=== PATIENT | male | born 1970 | race Caucasian/White ===

== ENCOUNTER 2017-05-09 11:35 | Emergency (ER) | payer BC ==
[2017-05-09 11:48] VITALS: RESP 18
[2017-05-09] MEDS ORDERED: SODIUM CHLORIDE 0.9% 500 ML IV STA (12:00)
[2017-05-09] MEDS ORDERED: RX INFO: IV CONTRAST WAS GIVEN 1 EACH MISC MISCELLANE PRN (12:00)
[2017-05-09] MEDS ORDERED: SODIUM CHLORIDE 0.9% 1,000 ML IV STA (12:00)
[2017-05-09] MEDS ORDERED: MORPHINE SULFATE 4 MG/ML SYRINGE IV STA (12:00)
[2017-05-09] MEDS ORDERED: ONDANSETRON 4 MG/2 ML VIAL IVP STA (12:00)
--- NOTE | 2017-05-09 12:16 | ED ---
General Adult HPI - General Chief complaint: Headache Stated complaint: left arm pain, headache (cardiac pt) Time Seen by Provider: 05/09/17 11:56 Source: patient, RN notes reviewed, old records reviewed Mode of arrival: wheelchair Limitations: no limitations - History of Present Illness Initial comments: This is a 46-year-old male to the ER today for evaluation regarding headache. 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 No prior history of headache. Patient denies any medical history. He states his work last night does admit to stress from work. Complaining of anterior headache for the last 4 hours after he woke this morning. Patient also stated he had some chest pain and some left arm tingling at the time. Chest pain tingling has resolved. Patient still with anterior headache. Denies fever or recent trauma. Patient takes no medications, denies drugs or alcohol. Patient states this is not the worse headache that he has ever had but it is concerning if it is not improved with Motrin and Tylenol. Patient states headache is anterior behind his forehead and throbbing in nature. No nausea vomiting. No recent fevers, patient denies neck pain. Denies any recent trauma. No change in vision no hearing issues. Patient denies numbness entailing at this time, no neurological complaint - Related Data Home Medications Medication Instructions Recorded Confirmed Multivitamins, Thera [Theragran] 1 tab PO DAILY 05/19/15 05/09/17 Omeprazole [PriLOSEC] 20 mg PO DAILY 05/19/15 05/09/17 amLODIPine BESYLATE/BENAZEPRIL 1 cap PO DAILY 05/19/15 05/09/17 [Amlodipine-Benazepril 5-10 mg] Allergies Allergy/AdvReac Type Severity Reaction Status Date / Time No Known Allergies Allergy Verified 05/09/17 12:15 Review of Systems ROS Statement: Those systems with pertinent positive or pertinent negative responses have been documented in the HPI. ROS Other: All systems not noted in ROS Statement are negative. Past Medical History Past Medical History: GERD/Reflux, Hypertension Additional Past Medical History / Comment(s): HX OF PERICARDITIS (17 YRS OLD)., BLOOD IN STOOL., SLIGHT HEARING LOSS. History of Any Multi-Drug Resistant Organisms: None Reported Past Surgical History: Tonsillectomy Additional Past Surgical History / Comment(s): ARTHROSCOPY RT KNEE, UPPER SCOPE TO REMOVE IBUPROFEN STUCK IN ESOPHAGEAL STRICTURE. Past Anesthesia/Blood Transfusion Reactions: No Reported Reaction Past Psychological History: No Psychological Hx Reported Smoking Status: Never smoker Past Alcohol Use History: Occasional Past Drug Use History: None Reported - Past Family History Mother Family Medical History: No Reported History General Exam Limitations: no limitations General appearance: alert, in no apparent distress Head exam: Present: atraumatic, normocephalic, normal inspection Eye exam: Present: normal appearance, PERRL, EOMI. Absent: scleral icterus, conjunctival injection, periorbital swelling ENT exam: Present: normal exam, mucous membranes moist Neck exam: Present: normal inspection. Absent: tenderness, meningismus, lymphadenopathy Respiratory exam: Present: normal lung sounds bilaterally. Absent: respiratory distress, wheezes, rales, rhonchi, stridor Cardiovascular Exam: Present: regular rate, normal rhythm, normal heart sounds. Absent: systolic murmur, diastolic murmur, rubs, gallop, clicks GI/Abdominal exam: Present: soft, normal bowel sounds. Absent: distended, tenderness, guarding, rebound, rigid Extremities exam: Present: normal inspection, full ROM, normal capillary refill. Absent: tenderness, pedal edema, joint swelling, calf tenderness Back exam: Present: normal inspection Neurological exam: Present: alert, oriented X3, CN II-XII intact Psychiatric exam: Present: normal affect, normal mood Skin exam: Present: warm, dry, intact, normal color. Absent: rash Course Vital Signs 05/09/17 05/09/17 05/09/17 11:44 13:06 14:36 Temperature 98.1 F Pulse Rate 78 78 80 Respiratory 18 18 18 Rate Blood Pressure 139/95 148/96 137/89 O2 Sat by Pulse 96 97 96 Oximetry - Reevaluation(s) Reevaluation #1: 05/09/17 15:52 At this point patient has significant improvement in headache EKG Findings - EKG Comments: EKG Findings:: EKG shows normal sinus rhythm rate of 72, LA 162, QRS 96, QTC 370 Medical Decision Making - Medical Decision Making 46 male the ER for evaluation. Patient is a new event ER for evaluation of headache. Stress headache, states job is under increased stress. No nausea vomiting no neurological complaints, no visual or hearing issues. Patient's headache at this time is resolved - Lab Data Result diagrams: 05/09/17 12:54 05/09/17 12:54 Lab Results 05/09/17 05/09/17 05/09/17 Range/Units 12:54 12:54 12:54 WBC 10.3 (3.8-10.6) k/uL RBC 5.06 (4.30-5.90) m/uL Hgb 15.6 (13.0-17.5) gm/dL Hct 42.5 (39.0-53.0) % MCV 83.9 (80.0-100.0) fL MCH 30.8 (25.0-35.0) pg MCHC 36.6 (31.0-37.0) g/dL RDW 13.0 (11.5-15.5) % Plt Count 259 (150-450) k/uL Neutrophils % 89 % Lymphocytes % 7 % Monocytes % 2 % Eosinophils % 0 % Basophils % 0 % Neutrophils # 9.2 H (1.3-7.7) k/uL Lymphocytes # 0.8 L (1.0-4.8) k/uL Monocytes # 0.2 (0-1.0) k/uL Eosinophils # 0.0 (0-0.7) k/uL Basophils # 0.0 (0-0.2) k/uL PT (9.0-12.0) sec INR (<1.1) APTT (22.0-30.0) sec Sodium 140 (137-145) mmol/L Potassium 4.4 (3.5-5.1) mmol/L Chloride 105 (98-107) mmol/L Carbon Dioxide 25 (22-30) mmol/L Anion Gap 10 mmol/L BUN 14 (9-20) mg/dL Creatinine 0.82 (0.66-1.25) mg/dL Est GFR (MDRD) Af Amer >60 (>60 ml/min/1.73 sqM) Est GFR (MDRD) Non-Af >60 (>60 ml/min/1.73 sqM) Glucose 114 H (74-99) mg/dL Calcium 9.3 (8.4-10.2) mg/dL Phosphorus 3.5 (2.5-4.5) mg/dL Magnesium 2.0 (1.6-2.3) mg/dL Total Bilirubin 0.7 (0.2-1.3) mg/dL AST 22 (17-59) U/L ALT 23 (21-72) U/L Alkaline Phosphatase 51 (38-126) U/L Total Creatine Kinase 131 (55-170) U/L CK-MB (CK-2) 1.8 (0.0-2.4) ng/mL CK-MB (CK-2) Rel Index 1.4 Troponin I <0.012 (0.000-0.034) ng/mL Total Protein 7.5 (6.3-8.2) g/dL Albumin 4.4 (3.5-5.0) g/dL 05/09/17 Range/Units 12:54 WBC (3.8-10.6) k/uL RBC (4.30-5.90) m/uL Hgb (13.0-17.5) gm/dL Hct (39.0-53.0) % MCV (80.0-100.0) fL MCH (25.0-35.0) pg MCHC (31.0-37.0) g/dL RDW (11.5-15.5) % Plt Count (150-450) k/uL Neutrophils % % Lymphocytes % % Monocytes % % Eosinophils % % Basophils % % Neutrophils # (1.3-7.7) k/uL Lymphocytes # (1.0-4.8) k/uL Monocytes # (0-1.0) k/uL Eosinophils # (0-0.7) k/uL Basophils # (0-0.2) k/uL PT 11.2 (9.0-12.0) sec INR 1.1 (<1.1) APTT 27.8 (22.0-30.0) sec Sodium (137-145) mmol/L Potassium (3.5-5.1) mmol/L Chloride (98-107) mmol/L Carbon Dioxide (22-30) mmol/L Anion Gap mmol/L BUN (9-20) mg/dL Creatinine (0.66-1.25) mg/dL Est GFR (MDRD) Af Amer (>60 ml/min/1.73 sqM) Est GFR (MDRD) Non-Af (>60 ml/min/1.73 sqM) Glucose (74-99) mg/dL Calcium (8.4-10.2) mg/dL Phosphorus (2.5-4.5) mg/dL Magnesium (1.6-2.3) mg/dL Total Bilirubin (0.2-1.3) mg/dL AST (17-59) U/L ALT (21-72) U/L Alkaline Phosphatase (38-126) U/L Total Creatine Kinase (55-170) U/L CK-MB (CK-2) (0.0-2.4) ng/mL CK-MB (CK-2) Rel Index Troponin I (0.000-0.034) ng/mL Total Protein (6.3-8.2) g/dL Albumin (3.5-5.0) g/dL - Radiology Data Radiology results: report reviewed (CT brain, CT angiogram neck negative for acute disease, no aneurysm,), image reviewed Disposition Clinical Impression: Headache, Anxiety, Stress reaction, Tension headache Disposition: HOME SELF-CARE Condition: Good Instructions: Acute Headache (ED) Referrals: Ravinder Bryant MD [Primary Care Provider] - 1-2 days
[2017-05-09 13:23] LABS: Basophils % (A) 0 %; CH 29.6; CHCM 35.4; Eosinophils % (A) 0 %; HCT 42.5 % (39.0-53.0); HDW 3.11; HGB 15.6 gm/dL (13.0-17.5); Luc # (Auto) 0.08; Luc % (Auto) 1; Lymphocytes # (A) 0.8 k/uL (1.0-4.8); Lymphocytes % (A) 7 %; MCH 30.8 pg (25.0-35.0); MCHC 36.6 g/dL (31.0-37.0); MCV 83.9 fL (80.0-100.0); Mean Platelet Volume 6.6; Monocytes # (A) 0.2 k/uL (0-1.0); Monocytes % (A) 2 %; Neutrophils # (A) 9.2 k/uL (1.3-7.7); Neutrophils % (A) 89 %; RBC 5.06 m/uL (4.30-5.90); WBC 10.3 k/uL (3.8-10.6); WBC (Perox) 10.48
[2017-05-09 13:31] LABS: ALT 23 U/L (21-72); AST 22 U/L (17-59); Alkaline Phosphatase 51 U/L (38-126); Anion Gap 10 mmol/L; Blood Urea Nitrogen 14 mg/dL (9-20); Calcium 9.3 mg/dL (8.4-10.2); Carbon Dioxide 25 mmol/L (22-30); Chloride 105 mmol/L (98-107); Glucose 114 mg/dL (74-99); Non-African American GFR(MDRD) >60 (>60 ml/min/1.73 sqM); Phosphorous 3.5 mg/dL (2.5-4.5); Potassium 4.4 mmol/L (3.5-5.1); Sodium 140 mmol/L (137-145); Total Bilirubin 0.7 mg/dL (0.2-1.3); Total Protein 7.5 g/dL (6.3-8.2)
[2017-05-09 13:34] LABS: INR 1.1 (<1.1); Partial Thromboplastin Time 27.8 sec (22.0-30.0); Prothrombin Time 11.2 sec (9.0-12.0)
[2017-05-09 13:42] LABS: Creatine Kinase 131 U/L (55-170)
[2017-05-09 13:55] LABS: Creatine Kinase MB 1.8 ng/mL (0.0-2.4); Troponin I <0.012 ng/mL (0.000-0.034)
--- NOTE | 2017-05-09 14:33 | XR ---
EXAMINATION TYPE: XR chest 2V DATE OF EXAM: 05/09/2017 COMPARISON: None HISTORY: 46-year-old male left arm pain and weakness TECHNIQUE: PA and lateral views FINDINGS: The cardiomediastinal silhouette, aorta, and pulmonary vasculature are within normal limits. No conso lidation or pleural effusion. IMPRESSION: No acute cardiopulmonary process.
[2017-05-09] MEDS ORDERED: diphenhydrAMINE 50 MG/ML 1 ML VIAL IVP STA (14:49)
[2017-05-09] MEDS ORDERED: DIAZEPAM 5 MG/ML 2 ML SYRINGE IVP STA (14:49)
--- NOTE | 2017-05-09 15:14 | CT ---
EXAMINATION TYPE: CT angio head neck DATE OF EXAM: 05/09/2017 HISTORY: Chest pain and headache COMPARISON: NONE CT DLP: 538.10 mGycm. Automated Exposure Control for Dose Reduction was Utilized. TECHNIQUE: CTA scan of the neck is performed with IV Contrast, patient injected with 100 ml mL of Om nipaque 350, axial images are obtained, coronal and sagittal reformatted images are reviewed. Three-D reconstructed images are created on an independent workstation and reviewed. FINDINGS: Carotid/Vascular Structures: Patent, there is no evident filling defect or dissection. Left vertebral artery is dominant. [place] shows no aneurysm or significant stenosis, no vascular malforma tion. Other: Degenerative disc disease present within the visualized cervical spine. Multilevel foraminal e ncroachment. IMPRESSION: No significant abnormality is seen.
--- NOTE | 2017-05-09 15:19 | CT ---
EXAMINATION TYPE: CT brain wo con DATE OF EXAM: 05/09/2017 COMPARISON: NONE HISTORY: Chest pain and headache CT DLP: 1047.10 mGycm. Automated Exposure Control for Dose Reduction was Utilized. TECHNIQUE: CT scan of the head is performed without contrast. FINDINGS: There is no acute intracranial hemorrhage, mass effect, or midline shift identified. The ventricles and sulci are within normal limits in size. The globes are intact and the visualized sin uses are remarkable for mucosal disease in the ethmoid air cells and frontal sinus. IMPRESSION: No acute intracranial hemorrhage, mass effect, or midline shift is seen.
[2017-05-09] MEDS ORDERED: KETOROLAC 30 MG/ML 1 ML VIAL IVP STA (15:52)
[2017-05-09 16:24] VITALS: BP 140/92; PULSE 74; TEMP 97.8
== END 2017-05-09 16:23 | disposition home or self-care (01) ==
LOC: EC 11:35
DX: G44.209 Tension-type headache, unspecified, not intractable (principal); F43.9 Reaction to severe stress, unspecified; F41.9 Anxiety disorder, unspecified; M79.602 Pain in left arm; K21.9 Gastro-esophageal reflux disease without esophagitis; I10 Essential (primary) hypertension; Z79.899 Other long term (current) drug therapy
CPT/HCPCS: 36415; 93005; 80053; 82550; 82553; 83735; 84100; 84484; 85025; 85610; 85730; 71020; 70496; 70450; 70498; 99285; 96374; 96375 ×2; 96361 ×3; J2270; Q9967; J2405; J1885

== ENCOUNTER 2018-12-06 09:30 | Day surgery (SDC) | payer BC ==
[2018-12-04 13:26] VITALS: BMI 31.0
[~2018-12-06 09:30] MED LIST: LACTATED RINGERS 1,000 ML IV SCH; LIDOCAINE 1% 20 ML VIAL (10MG/ML) FOR IV START INTRADERMA PRN
[2018-12-06 10:22] VITALS: RESP 16; TEMP 97.6
[2018-12-06] MEDS ORDERED: LIDOCAINE 1% INJ 10MG/ML (20 ML MDV) ONE (11:08)
[2018-12-06] MEDS ORDERED: PROPOFOL 10 MG/ML 20 ML VIAL IV ONE (11:08)
--- NOTE | 2018-12-06 12:05 | P.PCN ---
Date of Procedure: 12/06/18 Procedure(s) Performed: Procedures: 1. Esophagogastroduodenoscopy and biopsy. 2. Colonoscopy and polypectomy. Preoperative diagnosis: Reflux symptoms, change in bowel habits and intermittent rectal bleeding. Postoperative diagnosis: 1. Hiatal hernia and Hilario's esophagus. 2. Mild gastritis. 3. Sigmoid polyp snared but no large polyps or cancer. 4. Sigmoid diverticulosis with no evidence of acute diverticulitis or strictures. 5. Low- grade internal hemorrhoids without bleeding at the time of this exam. Preparation: HalfLytely prep. Sedation: Was provided by anesthesia. Brief clinical history: The patient 48-year-old male who is scheduled for this evaluation because of issues with constipation and intermittent rectal bleeding as well as chronic reflux issues requiring PPI therapy. He has history of esophageal stricture that required dilation several years back. He had a prior colonoscopy in 2014 that revealed internal hemorrhoids and diverticulosis. Procedure: With the patient on his left lateral decubitus position and after informed consent and adequate sedation, I passed a Olympus-GIF H190 video upper endoscope through the cricopharyngeus down the esophagus. The kofi-GE junction started around 36 cm from the incisors and the tubular esophagus continued for another 4-5 cm defining a segment of Hilario's esophagus. The esophagus, otherwise, did not show any erosions or strictures. No ulcers or bleeding. The endoscope was then passed into the stomach. There was a 1-2 cm sliding hiatal hernia. The stomach showed mottling and erythema consistent with mild antral gastritis. Pyloric channel, duodenal bulb, post bulbar area and descending duodenum appeared within normal limits. I obtained multiple biopsies from the duodenum, antrum and esophagus including the segment of Hilario's esophagus then the endoscope was withdrawn and I proceeded with the colonoscopy. Perianal area did not show any fissures or fistulas. There were no masses felt on digital rectal examination. The Olympus CFH 190L video colonoscope was then inserted in the rectum in the usual fashion and advanced to the cecum. Several diverticular orifices were seen scattered in the sigmoid with no evidence of acute diverticulitis or strictures. In the distal sigmoid there was a small polyp which I snared and retrieved by suctioning it to the tip of the endoscope , withdrawing the endoscope and then restarting the exam. The mucosa appeared healthy. No other polyps or tumors were seen. I retroflexed the endoscope in the rectum before the endoscope was withdrawn. Low-grade internal hemorrhoids were noted with no evidence of bleeding. The patient tolerated the procedure well. Plan: The patient was reassured. Discussed dietary measures and local care for hemorrhoids and antireflux diet. He will continue PPI and I anticipate repeating his upper endoscopy in 2-3 years and his colonoscopy in around 5 years. He will follow up with you as planned.
[2018-12-06 12:10] VITALS: BP 130/90; PULSE 63
--- NOTE | 2018-12-10 11:41 | CDI ---
Outpatient Documentation Clarification Form Date: 12/10/18 CDS/Nurse Sane Name: Rukhsana Acosta Phone: If any questions, call Nichole Aguilar Legal Coordinator at [phone] Patient Name: Saul Ross Admit Date: 12/06/18 Discharge Date: 12/06/18 ATTENTION: The [facility] Coding Staff appreciate your assistance in clarifying documentation. Please respond to the clarification below the line at the bottom and electronically sign. The [facility] Coding staff will review the response and follow-up if needed. Please note: Queries are made part of the Legal Health Record. If you have any questions, please contact the Legal Coordinator. Dear Dr. Busby, What is the cause of the rectal bleeding? Our coding resources state that when rectal bleeding is documented along with internal and/or external hemorrhoids, the physician must be queried to determine whether the rectal bleeding is secondary to the hemorrhoids, or incidental. Additionally, other possible causes could be the sigmoid tubular adenoma or the diverticulosis. Thank you for your kind consideration. When I do colonoscopy and no active bleeding, I cannot determine source. If I know source, I say it. I gave all the information that I can. Do not ask this question again on future cases. GREGORIO
== END 2018-12-06 13:15 | disposition home or self-care (01) ==
LOC: ORWHC2ENDO 09:30
DX: K22.70 Barrett's esophagus without dysplasia (principal); K21.0 Gastro-esophageal reflux disease with esophagitis; K29.50 Unspecified chronic gastritis without bleeding; K44.9 Diaphragmatic hernia without obstruction or gangrene; D12.5 Benign neoplasm of sigmoid colon; K57.30 Diverticulosis of large intestine without perforation or abscess without bleeding; K64.8 Other hemorrhoids; I10 Essential (primary) hypertension; Z87.19 Personal history of other diseases of the digestive system; Z79.899 Other long term (current) drug therapy
CPT/HCPCS: 88305; 45385; 43239; J2001; J2704

== ENCOUNTER 2019-04-18 22:21 | Emergency (ER) | payer BC ==
[2019-04-18] MEDS ORDERED: ACETAMINOPHEN TAB 500 MG TAB PO STA (22:46)
[2019-04-18] MEDS ORDERED: SODIUM CHLORIDE 0.9% 1,000 ML IV STA (22:46)
[2019-04-18] MEDS ORDERED: ONDANSETRON 4 MG/2 ML VIAL IVP STA (22:47)
--- NOTE | 2019-04-18 22:50 | ED ---
General Adult HPI - General Chief complaint: Upper Respiratory Infection Stated complaint: Fever Time Seen by Provider: 04/18/19 22:36 Source: patient, family, RN notes reviewed Mode of arrival: ambulatory Limitations: no limitations - History of Present Illness Initial comments: Patient is a pleasant 48-year-old male presenting to the emergency Department with complaints of not feeling well. Onset of symptoms was 2 days ago. Patient did have nausea and vomiting and hasn't vomited approximately 4-5 times. Nausea seems improved. Patient did have a headache yesterday however that has resolved at this time. Patient now has sore throat. Patient complains of fatigue and myalgias and chills. Patient has been taking Tylenol or Motrin. Last Tylenol was 6 PM. Last Advil was around 9 PM. They're may be minimal cough. No dyspnea. No abdominal pain. No isolated area of weakness or confusion. No neck stiffness. - Related Data Home Medications Medication Instructions Recorded Confirmed Omeprazole [PriLOSEC] 20 mg PO DAILY 05/19/15 04/18/19 amLODIPine BESYLATE/BENAZEPRIL 1 cap PO DAILY 05/19/15 04/18/19 [Amlodipine-Benazepril 5-10 mg] Previous Rx's Medication Instructions Recorded Ondansetron Odt [Zofran Odt] 4 mg PO Q8HR PRN #10 tab 04/19/19 Allergies Allergy/AdvReac Type Severity Reaction Status Date / Time No Known Allergies Allergy Verified 04/18/19 22:55 Review of Systems ROS Statement: Those systems with pertinent positive or pertinent negative responses have been documented in the HPI. ROS Other: All systems not noted in ROS Statement are negative. Constitutional: Reports: as per HPI, fever, chills Eyes: Denies: eye pain ENT: Denies: ear pain Respiratory: Reports: as per HPI Cardiovascular: Denies: chest pain Endocrine: Reports: fatigue Gastrointestinal: Reports: nausea, vomiting. Denies: abdominal pain, diarrhea, constipation Genitourinary: Denies: dysuria Musculoskeletal: Denies: back pain Skin: Denies: rash Neurological: Reports: as per HPI Past Medical History Past Medical History: GERD/Reflux, Hypertension Additional Past Medical History / Comment(s): HX OF PERICARDITIS (17 YRS OLD)., BLOOD IN STOOL., SLIGHT HEARING LOSS. 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 Past Anesthesia/Blood Transfusion Reactions: No Reported Reaction Past Psychological History: No Psychological Hx Reported Smoking Status: Never smoker Past Alcohol Use History: Occasional Past Drug Use History: None Reported - Past Family History Sister(s) Family Medical History: Cancer Additional Family Medical History / Comment(s): pancreatic General Exam Limitations: no limitations General appearance: alert, in no apparent distress Head exam: Present: atraumatic, normocephalic Eye exam: Present: normal appearance, PERRL, EOMI ENT exam: Present: normal oropharynx Neck exam: Present: lymphadenopathy (Anterior cervical lymphadenopathy with tenderness). Absent: meningismus Respiratory exam: Present: normal lung sounds bilaterally Cardiovascular Exam: Present: tachycardia Expanded Peripheral pulses: 2+: Radial (R), Radial (L), Dorsalis Pedis (R), Dorsalis Pedis (L) GI/Abdominal exam: Present: soft. Absent: distended, tenderness Extremities exam: Present: normal inspection. Absent: pedal edema, calf tenderness Neurological exam: Present: alert. Absent: motor sensory deficit Psychiatric exam: Present: normal affect, normal mood Skin exam: Present: normal color Course Vital Signs 04/18/19 04/18/19 22:29 22:46 Temperature 100.3 F H Pulse Rate 107 H Respiratory 20 Rate Blood Pressure 122/73 O2 Sat by Pulse 95 95 Oximetry Medical Decision Making - Medical Decision Making Patient reevaluated and feels better. Repeat abdominal exam remained soft and nontender. Patient and family updated on results and need for follow-up. Patient advised for repeat testing regarding bilirubin - Lab Data Result diagrams: 04/18/19 23:02 04/18/19 23:02 Lab Results 04/18/19 04/18/19 04/18/19 Range/Units 23:02 23:02 23:02 WBC 13.5 H (3.8-10.6) k/uL RBC 5.00 (4.30-5.90) m/uL Hgb 14.7 (13.0-17.5) gm/dL Hct 41.9 (39.0-53.0) % MCV 83.9 (80.0-100.0) fL MCH 29.4 (25.0-35.0) pg MCHC 35.0 (31.0-37.0) g/dL RDW 14.1 (11.5-15.5) % Plt Count 229 (150-450) k/uL Neutrophils % 92 % Lymphocytes % 4 % Monocytes % 3 % Eosinophils % 1 % Basophils % 0 % Neutrophils # 12.4 H (1.3-7.7) k/uL Lymphocytes # 0.5 L (1.0-4.8) k/uL Monocytes # 0.4 (0-1.0) k/uL Eosinophils # 0.1 (0-0.7) k/uL Basophils # 0.0 (0-0.2) k/uL Sodium 134 L (137-145) mmol/L Potassium 3.4 L (3.5-5.1) mmol/L Chloride 101 (98-107) mmol/L Carbon Dioxide 23 (22-30) mmol/L Anion Gap 10 mmol/L BUN 12 (9-20) mg/dL Creatinine 0.93 (0.66-1.25) mg/dL Est GFR (CKD-EPI)AfAm >90 (>60 ml/min/1.73 sqM) Est GFR (CKD-EPI)NonAf >90 (>60 ml/min/1.73 sqM) Glucose 126 H (74-99) mg/dL Calcium 8.6 (8.4-10.2) mg/dL Total Bilirubin 2.3 H (0.2-1.3) mg/dL AST 42 (17-59) U/L ALT 37 (21-72) U/L Alkaline Phosphatase 76 (38-126) U/L Total Protein 6.9 (6.3-8.2) g/dL Albumin 3.7 (3.5-5.0) g/dL Urine Color Urine Appearance (Clear) Urine pH (5.0-8.0) Ur Specific [place] (1.001-1.035) Urine Protein (Negative) Urine Glucose (UA) (Negative) Urine Ketones (Negative) Urine Blood (Negative) Urine Nitrite (Negative) Urine Bilirubin (Negative) Urine Urobilinogen (<2.0) mg/dL Ur Leukocyte Esterase (Negative) Influenza Type A RNA Not Detected (Not Detectd) Influenza Type B (PCR) Not Detected (Not Detectd) Group A Strep Rapid (Negative) 04/18/19 04/19/19 Range/Units 23:02 00:10 WBC (3.8-10.6) k/uL RBC (4.30-5.90) m/uL Hgb (13.0-17.5) gm/dL Hct (39.0-53.0) % MCV (80.0-100.0) fL MCH (25.0-35.0) pg MCHC (31.0-37.0) g/dL RDW (11.5-15.5) % Plt Count (150-450) k/uL Neutrophils % % Lymphocytes % % Monocytes % % Eosinophils % % Basophils % % Neutrophils # (1.3-7.7) k/uL Lymphocytes # (1.0-4.8) k/uL Monocytes # (0-1.0) k/uL Eosinophils # (0-0.7) k/uL Basophils # (0-0.2) k/uL Sodium (137-145) mmol/L Potassium (3.5-5.1) mmol/L Chloride (98-107) mmol/L Carbon Dioxide (22-30) mmol/L Anion Gap mmol/L BUN (9-20) mg/dL Creatinine (0.66-1.25) mg/dL Est GFR (CKD-EPI)AfAm (>60 ml/min/1.73 sqM) Est GFR (CKD-EPI)NonAf (>60 ml/min/1.73 sqM) Glucose (74-99) mg/dL Calcium (8.4-10.2) mg/dL Total Bilirubin (0.2-1.3) mg/dL AST (17-59) U/L ALT (21-72) U/L Alkaline Phosphatase (38-126) U/L Total Protein (6.3-8.2) g/dL Albumin (3.5-5.0) g/dL Urine Color Yellow Urine Appearance Clear (Clear) Urine pH 6.0 (5.0-8.0) Ur Specific [place] 1.009 (1.001-1.035) Urine Protein Trace H (Negative) Urine Glucose (UA) Negative (Negative) Urine Ketones Negative (Negative) Urine Blood Negative (Negative) Urine Nitrite Negative (Negative) Urine Bilirubin Negative (Negative) Urine Urobilinogen <2.0 (<2.0) mg/dL Ur Leukocyte Esterase Negative (Negative) Influenza Type A RNA (Not Detectd) Influenza Type B (PCR) (Not Detectd) Group A Strep Rapid Negative (Negative) - Radiology Data Radiology results: image reviewed (Chest x-ray reveals no acute findings) Disposition Clinical Impression: Viral infection Disposition: HOME SELF-CARE Condition: Stable Instructions (If sedation given, give patient instructions): Viral Syndrome (ED) Additional Instructions: Please do follow-up with primary care physician in the next day or 2 for recheck. Return for difficulty breathing, uncontrolled fever, uncontrolled vomiting, increased pain, worsening symptoms or any other concerns. [id number] vitamin C. Salt water gargle. Continue Tylenol and Advil. Prescriptions: Ondansetron Odt [Zofran Odt] 4 mg PO Q8HR PRN #10 tab PRN Reason: Nausea Is patient prescribed a controlled substance at d/c from ED?: No Referrals: Ravinder Bryant MD [Primary Care Provider] - 1-2 days Time of Disposition: 00:35
[2019-04-18 23:26] LABS: Basophils % (A) 0 %; Eosinophils # (A) 0.1 k/uL (0-0.7); Eosinophils % (A) 1 %; HCT 41.9 % (39.0-53.0); HGB 14.7 gm/dL (13.0-17.5); Lymphocytes # (A) 0.5 k/uL (1.0-4.8); Lymphocytes % (A) 4 %; MCH 29.4 pg (25.0-35.0); MCV 83.9 fL (80.0-100.0); Mean Platelet Volume 6.9; Monocytes # (A) 0.4 k/uL (0-1.0); Monocytes % (A) 3 %; Neutrophils # (A) 12.4 k/uL (1.3-7.7); Neutrophils % (A) 92 %; Platelet Count 229 k/uL (150-450); RDW 14.1 % (11.5-15.5); WBC 13.5 k/uL (3.8-10.6)
--- NOTE | 2019-04-18 23:28 | XR ---
EXAM: XR Chest, 2 Views CLINICAL HISTORY: ITS.REASON XR Reason: cough TECHNIQUE: Frontal and lateral views of the chest. COMPARISON: No relevant prior studies available. FINDINGS: Lungs: Unremarkable. No consolidation. Pleural space: Unremarkable. No pneumothorax. Heart: No suspicious enlargement. Mediastinum: Unremarkable. Bones/joints: No acute fracture. IMPRESSION: No acute findings.
[2019-04-18 23:35] LABS: ALT 37 U/L (21-72); AST 42 U/L (17-59); African American GFR (CKD) >90 (>60 ml/min/1.73 sqM); Albumin 3.7 g/dL (3.5-5.0); Alkaline Phosphatase 76 U/L (38-126); Anion Gap 10 mmol/L; Blood Urea Nitrogen 12 mg/dL (9-20); Calcium 8.6 mg/dL (8.4-10.2); Carbon Dioxide 23 mmol/L (22-30); Chloride 101 mmol/L (98-107); Glucose 126 mg/dL (74-99); Potassium 3.4 mmol/L (3.5-5.1); Sodium 134 mmol/L (137-145); Total Bilirubin 2.3 mg/dL (0.2-1.3); Total Protein 6.9 g/dL (6.3-8.2)
[2019-04-19 00:26] LABS: Appearance,Urine Clear (Clear); Bilirubin,Urine Negative (Negative); Blood,Urine Negative (Negative); Color,Urine Yellow; Glucose,Urine (UA) Negative (Negative); Ketones,Urine Negative (Negative); Leukocyte Esterase,Urine Negative (Negative); Nitrite,Urine Negative (Negative); Protein,Urine Trace (Negative); Specific Gravity,Urine 1.009 (1.001-1.035); Urobilinogen,Urine <2.0 mg/dL (<2.0)
[2019-04-19 00:54] VITALS: BP 128/68; PULSE 89; RESP 18; TEMP 99
== END 2019-04-19 00:54 | disposition home or self-care (01) ==
LOC: EC 22:21
DX: B34.9 Viral infection, unspecified (principal); K21.9 Gastro-esophageal reflux disease without esophagitis; I10 Essential (primary) hypertension; Z79.899 Other long term (current) drug therapy
CPT/HCPCS: 36415; 80053; 85025; 81003; 87081; 87430; 87502; 71046; 99283; 96374; 96361; J2405

== ENCOUNTER 2019-04-19 10:21 | Inpatient (IN) | payer BC ==
[2019-04-19] MEDS ORDERED: ACETAMINOPHEN TAB 325 MG TAB PO STA (10:53)
[2019-04-19] MEDS ORDERED: SODIUM CHLORIDE 0.9% 1,000 ML IV ONE ×3 (10:53→17:09)
--- NOTE | 2019-04-19 11:02 | ED ---
ENT HPI - General Chief complaint: ENT Stated complaint: Weakness, Difficulty Swallowing Time Seen by Provider: 04/19/19 10:34 Source: patient Mode of arrival: ambulatory Limitations: no limitations - History of Present Illness Initial comments: 48-year-old male presenting today for chief complaint of fever, body aches, sore throat. x 2-3 days. Patient states that since Monday he has felt unwell initially thought he had a and something bad and had vomiting 3-4 times Monday evening. Patient states that subsided. Patient states he has had on and off epigastric pain. Patient states he has body aches all over he has had a sore throat that developed on Monday. He states he has had fever on and off managed with Tylenol and ibuprofen. Last dose of Advil 1 hour prior to arrival. Patient denies any chest pains shorts breath cough or leg swelling. Patient states he has had a history of pericarditis, stating that the body aches and fever feels similar. She denies any diarrhea, neck stiffness, ANGELA or photophobia. Remaining review of systems negative. Upon arrival patient appears fatigued. - Related Data Home Medications Medication Instructions Recorded Confirmed Omeprazole [PriLOSEC] 20 mg PO DAILY 05/19/15 04/19/19 amLODIPine BESYLATE/BENAZEPRIL 1 cap PO DAILY 05/19/15 04/19/19 [Amlodipine-Benazepril 5-10 mg] Allergies Allergy/AdvReac Type Severity Reaction Status Date / Time No Known Allergies Allergy Verified 04/19/19 13:24 Review of Systems ROS Statement: Those systems with pertinent positive or pertinent negative responses have been documented in the HPI. ROS Other: All systems not noted in ROS Statement are negative. Past Medical History Past Medical History: GERD/Reflux, Hypertension Additional Past Medical History / Comment(s): HX OF PERICARDITIS (17 YRS OLD)., BLOOD IN STOOL., SLIGHT HEARING LOSS. 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 Past Anesthesia/Blood Transfusion Reactions: No Reported Reaction Past Psychological History: No Psychological Hx Reported Smoking Status: Never smoker Past Alcohol Use History: Occasional Past Drug Use History: None Reported - Past Family History Sister(s) Family Medical History: Cancer Additional Family Medical History / Comment(s): pancreatic General Exam - General Exam Comments Initial Comments: General: The patient is awake and alert, in no distress Eye: +3 mm pupils are equal, round and reactive to light, extra-ocular movements are intact. No nystagmus. There is normal conjunctiva bilaterally. No signs of icterus. No photophobia Ears, nose, mouth and throat: There are moist mucous membranes and no oral lesions. Oropharynx was mildly erythematous there is no tonsillar enlargement exudates or lesions. Uvula midline. Tympanic membranes are not erythematous or is no effusions bulging or retraction. No tenderness to palpation of the mastoid. No anterior cervical lymphadenopathy. Rhinorrhea, clear and bilateral nares. No tripoding, no drooling. Neck: The neck is supple, there is no tenderness or JVD. No nuchal rigidity negative Brudzinski and Kernig Cardiovascular: There is a regular rate and rhythm. No murmur, rub or gallop is appreciated. Respiratory: Lungs are clear to auscultation, respirations are non-labored, breath sounds are equal. No wheezes, stridor, rales, or rhonchi. No retractions or abdominal breathing. Gastrointestinal: Soft, non-distended, non-tender abdomen without masses or organomegaly noted. There is no rebound or guarding present. Bowel sounds are unremarkable. Musculoskeletal: Normal ROM, no tenderness. Strength 5/5. Sensation intact. Radial pulses equal bilaterally 2+. Neurological: A&O x 3. CN II-XII intact, There are no obvious motor or sensory deficits. Coordination appears grossly intact. Speech appears normal, no muf fling. Skin: Skin is warm and dry and no rashes or lesions are noted. No extremity edema Psychiatric: Cooperative Limitations: no limitations Course Vital Signs 04/19/19 04/19/19 04/19/19 10:24 11:56 13:50 Temperature 98.7 F Pulse Rate 116 H 112 H 105 H Respiratory 18 18 18 Rate Blood Pressure 105/70 102/69 99/66 O2 Sat by Pulse 95 99 95 Oximetry Medical Decision Making - Medical Decision Making 48-year-old male presenting for fever, body aches, sore throat. Pt seen in ER 9 hours prior to arrival after initial discharge. Patient states symptoms are worsening. Patient states he has a sore throat. No nuchal irritation signs on examination. Patient history of epigastric pain on and off. Denies any current. Laboratory studies reveal increase in bilirubin from earlier today. Normalization of WBC count. Lactic acid elevated. Given IV fluids, however no clinical or laboratory studies suggestive of dehydration. The patient's flu- like symptoms/fever with epigastric pain concern for myocarditis despite absence of chest pain. Troponin elevated. However there is no EKG findings consistent with myocarditis. No significant change from previous, reviewed by attending Dr. Kaminski. Given elevation of bilirubin ultrasound was obtained revealing signs consistent with possible early developing acute cholecystitis. Patient was started on ceftriaxone and Flagyl. General surgery consulted, recommended IV fluids, and IV abx. At this time will admit patient for further evaluation of elevated troponin with viral syndrome-like symptoms. Cardiology on consult. Infectious disease on consult. Dr. Barahona accepted admission. No further orders at this time from admitting or attending providers. - Lab Data Result diagrams: 04/19/19 11:00 04/19/19 11:00 Lab Results 04/19/19 04/19/19 04/19/19 Range/Units 11:00 11:00 11:00 WBC 6.2 (3.8-10.6) k/uL RBC 4.84 (4.30-5.90) m/uL Hgb 14.2 (13.0-17.5) gm/dL Hct 41.2 (39.0-53.0) % MCV 85.1 (80.0-100.0) fL MCH 29.3 (25.0-35.0) pg MCHC 34.4 (31.0-37.0) g/dL RDW 14.8 (11.5-15.5) % Plt Count 206 (150-450) k/uL Neutrophils % (Manual) 50 % Band Neutrophils % 38 % Lymphocytes % (Manual) 8 % Monocytes % (Manual) 5 % Metamyelocytes % 1 % Neutrophils # (Manual) 5.40 (1.3-7.7) k/uL Lymphocytes # (Manual) 0.50 L (1.0-4.8) k/uL Monocytes # (Manual) 0.31 (0-1.0) k/uL Metamyelocytes # (Man) 0.06 H (0) k/uL Nucleated RBCs 0 (0-0) /100 WBC Manual Slide Review Performed Anisocytosis (manual) Present Sodium (137-145) mmol/L Potassium (3.5-5.1) mmol/L Chloride (98-107) mmol/L Carbon Dioxide (22-30) mmol/L Anion Gap mmol/L BUN (9-20) mg/dL Creatinine (0.66-1.25) mg/dL Est GFR (CKD-EPI)AfAm (>60 ml/min/1.73 sqM) Est GFR (CKD-EPI)NonAf (>60 ml/min/1.73 sqM) Glucose (74-99) mg/dL Lactic Ac Sepsis Rflx Plasma Lactic Acid Jimy 2.3 H* (0.7-2.0) mmol/L Calcium (8.4-10.2) mg/dL Total Bilirubin (0.2-1.3) mg/dL AST (17-59) U/L ALT (21-72) U/L Alkaline Phosphatase (38-126) U/L Troponin I (0.000-0.034) ng/mL Total Protein (6.3-8.2) g/dL Albumin (3.5-5.0) g/dL Lipase (23-300) U/L Heterophile Antibody Negative (Negative) 04/19/19 04/19/19 04/19/19 Range/Units 11:00 11:00 11:00 WBC (3.8-10.6) k/uL RBC (4.30-5.90) m/uL Hgb (13.0-17.5) gm/dL Hct (39.0-53.0) % MCV (80.0-100.0) fL MCH (25.0-35.0) pg MCHC (31.0-37.0) g/dL RDW (11.5-15.5) % Plt Count (150-450) k/uL Neutrophils % (Manual) % Band Neutrophils % % Lymphocytes % (Manual) % Monocytes % (Manual) % Metamyelocytes % % Neutrophils # (Manual) (1.3-7.7) k/uL Lymphocytes # (Manual) (1.0-4.8) k/uL Monocytes # (Manual) (0-1.0) k/uL Metamyelocytes # (Man) (0) k/uL Nucleated RBCs (0-0) /100 WBC Manual Slide Review Anisocytosis (manual) Sodium 136 L (137-145) mmol/L Potassium 3.7 (3.5-5.1) mmol/L Chloride 104 (98-107) mmol/L Carbon Dioxide 21 L (22-30) mmol/L Anion Gap 11 mmol/L BUN 11 (9-20) mg/dL Creatinine 0.89 (0.66-1.25) mg/dL Est GFR (CKD-EPI)AfAm >90 (>60 ml/min/1.73 sqM) Est GFR (CKD-EPI)NonAf >90 (>60 ml/min/1.73 sqM) Glucose 105 H (74-99) mg/dL Lactic Ac Sepsis Rflx Plasma Lactic Acid Jimy (0.7-2.0) mmol/L Calcium 8.3 L (8.4-10.2) mg/dL Total Bilirubin 3.5 H (0.2-1.3) mg/dL AST 38 (17-59) U/L ALT 36 (21-72) U/L Alkaline Phosphatase 69 (38-126) U/L Troponin I 0.213 H* (0.000-0.034) ng/mL Total Protein 6.5 (6.3-8.2) g/dL Albumin 3.5 (3.5-5.0) g/dL Lipase 53 (23-300) U/L Heterophile Antibody (Negative) 04/19/19 Range/Units 11:50 WBC (3.8-10.6) k/uL RBC (4.30-5.90) m/uL Hgb (13.0-17.5) gm/dL Hct (39.0-53.0) % MCV (80.0-100.0) fL MCH (25.0-35.0) pg MCHC (31.0-37.0) g/dL RDW (11.5-15.5) % Plt Count (150-450) k/uL Neutrophils % (Manual) % Band Neutrophils % % Lymphocytes % (Manual) % Monocytes % (Manual) % Metamyelocytes % % Neutrophils # (Manual) (1.3-7.7) k/uL Lymphocytes # (Manual) (1.0-4.8) k/uL Monocytes # (Manual) (0-1.0) k/uL Metamyelocytes # (Man) (0) k/uL Nucleated RBCs (0-0) /100 WBC Manual Slide Review Anisocytosis (manual) Sodium (137-145) mmol/L Potassium (3.5-5.1) mmol/L Chloride (98-107) mmol/L Carbon Dioxide (22-30) mmol/L Anion Gap mmol/L BUN (9-20) mg/dL Creatinine (0.66-1.25) mg/dL Est GFR (CKD-EPI)AfAm (>60 ml/min/1.73 sqM) Est GFR (CKD-EPI)NonAf (>60 ml/min/1.73 sqM) Glucose (74-99) mg/dL Lactic Ac Sepsis Rflx Y Plasma Lactic Acid Jimy (0.7-2.0) mmol/L Calcium (8.4-10.2) mg/dL Total Bilirubin (0.2-1.3) mg/dL AST (17-59) U/L ALT (21-72) U/L Alkaline Phosphatase (38-126) U/L Troponin I (0.000-0.034) ng/mL Total Protein (6.3-8.2) g/dL Albumin (3.5-5.0) g/dL Lipase (23-300) U/L Heterophile Antibody (Negative) Ventricular rate 112 beats for minute, [place] interval 120 ms, torsed administration 100 ms, QT/QTC 304/414 ms. This is sinus tachycardia nonspecific T-wave abnormality. No ST elevation or depression. Reviewed by myself and Dr. Kaminski. 04/19/19 15:09 Disposition Clinical Impression: Cholecystitis, Fever, Weakness, Sore throat, Epigastric pain, Elevated troponin Disposition: ADMITTED IP TO THIS [facility] Condition: Stable Is patient prescribed a controlled substance at d/c from ED?: No Referrals: Ravinder Bryant MD [Primary Care Provider] - 1-2 days Time of Disposition: 14:44 Decision to Admit Reason: Admit from EC Decision Date: 04/19/19 Decision Time: 14:45
[2019-04-19 11:56] LABS: HCT 41.2 % (39.0-53.0); HGB 14.2 gm/dL (13.0-17.5); MCH 29.3 pg (25.0-35.0); MCHC 34.4 g/dL (31.0-37.0); MCV 85.1 fL (80.0-100.0); Mean Platelet Volume 7.1; Platelet Count 206 k/uL (150-450); RBC 4.84 m/uL (4.30-5.90); RDW 14.8 % (11.5-15.5); WBC 6.2 k/uL (3.8-10.6)
[2019-04-19] MEDS ORDERED: cefTRIAXone IN SWFI 1,000 MG/10 ML SYRINGE IVP STA (12:00)
[2019-04-19 12:08] LABS: ALT 36 U/L (21-72); AST 38 U/L (17-59); African American GFR (CKD) >90 (>60 ml/min/1.73 sqM); Albumin 3.5 g/dL (3.5-5.0); Alkaline Phosphatase 69 U/L (38-126); Anion Gap 11 mmol/L; Blood Urea Nitrogen 11 mg/dL (9-20); Calcium 8.3 mg/dL (8.4-10.2); Carbon Dioxide 21 mmol/L (22-30); Chloride 104 mmol/L (98-107); Glucose 105 mg/dL (74-99); Potassium 3.7 mmol/L (3.5-5.1); Sodium 136 mmol/L (137-145); Total Bilirubin 3.5 mg/dL (0.2-1.3); Total Protein 6.5 g/dL (6.3-8.2)
[2019-04-19 12:50] LABS: Metamyelocytes # (M) 0.06 k/uL (0); Metamyelocytes % 1 %; Monocytes # (M) 0.31 k/uL (0-1.0); Nucleated Red Blood Cells 0 /100 WBC (0-0)
[2019-04-19 12:51] LABS: Band Neutrophils % 38 %; Neutrophils % (M) 50 %; Total Cells Counted 200
[2019-04-19 12:52] LABS: Anisocytosis (M) Present
[2019-04-19] MEDS ORDERED: NALOXONE 0.4 MG/ML 1 ML VIAL IV PRN (13:16)
[2019-04-19] MEDS ORDERED: ACETAMINOPHEN TAB 325 MG TAB PO PRN (13:16)
--- NOTE | 2019-04-19 13:19 | CT ---
EXAMINATION TYPE: CT soft tissue neck w con DATE OF EXAM: 04/19/2019 1:06 PM COMPARISON: CT neck 05/09/2017 HISTORY: Dysphagia CT DLP: 422.9 mGycm Automated exposure control for dose reduction was used. CONTRAST: CT scan of the neck is performed following with IV Contrast, patient injected with 100 mL of Isovue 3 00. Axial images are obtained, coronal and sagittal reformatted images are reviewed. FINDINGS: Airway: No gross abnormality seen. Inflammatory change present in the right maxillary sinus Parotid/submandibular glands: No gross abnormality seen. Carotid/Vascular Structures: Super aortic branch vessels are patent. No evident stenosis. Left verteb ral artery is dominant. Osseous Structures: Degenerative disc changes, multilevel foraminal encroachment noted in the visuali zed cervical spine. Other: No significant adenopathy. Lung apices are normal. IMPRESSION: No abnormality evident to account for patient's symptoms. Additional findings above.
[2019-04-19] MEDS ORDERED: SODIUM CHLORIDE 0.9% 1,000 ML IV SCH (13:30)
--- NOTE | 2019-04-19 13:51 | US ---
EXAMINATION TYPE: US abdomen limited DATE OF EXAM: 04/19/2019 COMPARISON: NONE CLINICAL HISTORY: epigastric pain/increasing bilirubin. Difficult and limited exam due to patient's i nability to roll onto his side or take a deep breath in and hold EXAM MEASUREMENTS: Liver Length: 19.6 cm Gallbladder Wall: 0.3 cm CBD: 0.7 cm Right Kidney: 12.0 x 4.8 x 4.9 cm Pancreas: Obscured by bowel gas Liver: Enlarged, heterogeneous Gallbladder: Stone visualized measuring 2.1 cm with possible sludge visualized Evidence for sonographic Patiño's sign: No CBD: Dilated, distal portion obscured by bowel gas Right Kidney: No hydronephrosis or masses seen IMPRESSION: Findings suggesting early acute cholecystitis as there is a dilated common bile duct, cholelithiasis, biliary sludge, and upper limits of normal size of the gallbladder wall however no pericholecystic f luid or sonographic Paitño sign are seen.
[2019-04-19] MEDS ORDERED: metroNIDAZOLE-NS PMX 500 MG in SALINE 1 100ML.BAG IVPB STA (14:16)
[2019-04-19 16:03] LABS: Appearance,Urine Clear (Clear); Bilirubin,Urine 2+ (Negative); Blood,Urine Trace (Negative); Color,Urine Light Brown; Glucose,Urine (UA) Negative (Negative); Granular Casts,Urine 2 /lpf (0); Ketones,Urine Trace (Negative); Leukocyte Esterase,Urine Negative (Negative); Mucus,Urine Occasional /hpf; Nitrite,Urine Negative (Negative); PH, Urine 6.5 (5.0-8.0); Protein,Urine 2+ (Negative); RBC,Urine 2 /hpf (0-5); Squamous Epithelial Cell,Urine <1 /hpf (0-4); Urobilinogen,Urine >12.0 mg/dL (<2.0); WBC,Urine 4 /hpf (0-5)
[2019-04-19 16:04] LABS: Specific Gravity,Urine >1.050 (1.001-1.035)
[2019-04-19] MEDS ORDERED: KETOROLAC 30 MG/ML 1 ML VIAL IVP STA (16:11)
[2019-04-19] MEDS ORDERED: ACETAMINOPHEN IV (For NPO) 1,000 MG in EMPTY BAG 1 BAG IVPB STA (18:54)
[2019-04-19 20:22] VITALS: BMI 30.4
[2019-04-19] MEDS ORDERED: IBUPROFEN ORAL SUSP 100 MG/5 ML CUP PO PRN (20:46)
[2019-04-19] MEDS ORDERED: ACETAMINOPHEN ORAL SUSP 160 MG/5 ML CUP PO PRN (20:48)
[2019-04-19] MEDS: IBUPROFEN ORAL SUSP 100 MG/5 ML CUP PO PRN (21:37)
[2019-04-19] MEDS: MELATONIN 5 MG TABLET PO SCH (21:37)
[2019-04-19] MEDS: SODIUM CHLORIDE 0.9% 1,000 ML IV SCH (23:51)
[2019-04-20 03:21] LABS: Cholesterol 96 mg/dL (<200); HDL Cholesterol 14 mg/dL (40-60); LDL Cholesterol,Calculated 52 mg/dL (0-99); Triglycerides 150 mg/dL (<150)
[2019-04-20] MEDS: SODIUM CHLORIDE 0.9% 1,000 ML IV SCH ×3 (05:35→20:22)
[2019-04-20] MEDS: PANTOPRAZOLE SODIUM 40 MG GRANULE PKT PO SCH (06:52)
[2019-04-20] MEDS ORDERED: amLODIPine 5 MG TAB PO SCH (09:00)
[2019-04-20] MEDS ORDERED: AMLODIPINE BESYLATE PO SCH (09:00)
[2019-04-20] MEDS ORDERED: LISINOPRIL 10 MG TAB PO SCH (09:00)
[2019-04-20] MEDS ORDERED: [UNRECOGNIZED DRUG - OTHER] PO SCH (09:00)
[2019-04-20] MEDS ORDERED: BENAZEPRIL PO SCH (09:00)
[2019-04-20] MEDS: IBUPROFEN ORAL SUSP 100 MG/5 ML CUP PO PRN (09:29)
[2019-04-20] MEDS ORDERED: NITROGLYCERIN SL TABS 0.4 MG TAB SUBLINGUAL STA (10:03)
--- NOTE | 2019-04-20 10:34 | P.GSCN ---
History of Present Illness Consult date: 04/20/19 Reason for Consult: Epigastric pain, cholecystitis History of present illness: This a 48-year-old male who was evaluated in the emergency room. Patient had some complaints of general malaise. He had some mild epigastric/chest pain. Patient also performed which showed a 2.1 cm gallstone and gallbladder sludge. The patient is thought to have mild acute cholecystitis. Patient states that his abdominal pain has resolved this morning. He does not feel well however. Past Medical History Past Medical History: GERD/Reflux, Hypertension Additional Past Medical History / Comment(s): HX OF PERICARDITIS (17 YRS OLD)., BLOOD IN STOOL., SLIGHT HEARING LOSS. 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 Past Anesthesia/Blood Transfusion Reactions: No Reported Reaction Past Psychological History: No Psychological Hx Reported Smoking Status: Never smoker Past Alcohol Use History: Occasional Past Drug Use History: None Reported - Past Family History Sister(s) Family Medical History: Cancer Additional Family Medical History / Comment(s): pancreatic Medications and Allergies Home Medications Medication Instructions Recorded Confirmed Type Omeprazole [PriLOSEC] 20 mg PO DAILY 05/19/15 04/19/19 History amLODIPine BESYLATE/BENAZEPRIL 1 cap PO DAILY 05/19/15 04/19/19 History [Amlodipine-Benazepril 5-10 mg] Allergies Allergy/AdvReac Type Severity Reaction Status Date / Time No Known Allergies Allergy Verified 04/19/19 13:24 Surgical - Exam Vital Signs Temp Pulse Resp BP Pulse Ox 98.7 F 116 H 18 105/70 95 04/19/19 10:24 04/19/19 10:24 04/19/19 10:24 04/19/19 10:24 04/19/19 10:24 - General well developed, well nourished, no distress - Eyes PERRL - ENT normal pinna - Neck no masses - Respiratory normal expansion - Cardiovascular Rhythm: regular - Abdomen Abdomen: soft, non tender Results - Labs 04/19/19 11:00 04/19/19 11:00 Abnormal Lab Results - Last 24 Hours (Table) 04/19/19 04/19/19 04/19/19 Range/Units 11:00 11:00 11:00 Lymphocytes # (Manual) 0.50 L (1.0-4.8) k/uL Metamyelocytes # (Man) 0.06 H (0) k/uL Sodium (137-145) mmol/L Carbon Dioxide (22-30) mmol/L Glucose (74-99) mg/dL Plasma Lactic Acid Jimy 2.3 H* (0.7-2.0) mmol/L Calcium (8.4-10.2) mg/dL Total Bilirubin (0.2-1.3) mg/dL Troponin I 0.213 H* (0.000-0.034) ng/mL Triglycerides (<150) mg/dL HDL Cholesterol (40-60) mg/dL Ur Specific Sutton (1.001-1.035) Urine Protein (Negative) Urine Ketones (Negative) Urine Blood (Negative) Urine Bilirubin (Negative) Urine Mucus (None) /hpf 04/19/19 04/19/19 04/19/19 Range/Units 11:00 15:08 15:24 Lymphocytes # (Manual) (1.0-4.8) k/uL Metamyelocytes # (Man) (0) k/uL Sodium 136 L (137-145) mmol/L Carbon Dioxide 21 L (22-30) mmol/L Glucose 105 H (74-99) mg/dL Plasma Lactic Acid Jimy 2.3 H* (0.7-2.0) mmol/L Calcium 8.3 L (8.4-10.2) mg/dL Total Bilirubin 3.5 H (0.2-1.3) mg/dL Troponin I (0.000-0.034) ng/mL Triglycerides (<150) mg/dL HDL Cholesterol (40-60) mg/dL Ur Specific Sutton >1.050 H (1.001-1.035) Urine Protein 2+ H (Negative) Urine Ketones Trace H (Negative) Urine Blood Trace H (Negative) Urine Bilirubin 2+ H (Negative) Urine Mucus Occasional H (None) /hpf 04/19/19 04/19/19 04/20/19 Range/Units 18:44 22:17 02:59 Lymphocytes # (Manual) (1.0-4.8) k/uL Metamyelocytes # (Man) (0) k/uL Sodium (137-145) mmol/L Carbon Dioxide (22-30) mmol/L Glucose (74-99) mg/dL Plasma Lactic Acid Jimy (0.7-2.0) mmol/L Calcium (8.4-10.2) mg/dL Total Bilirubin (0.2-1.3) mg/dL Troponin I 0.098 H* 0.083 H* (0.000-0.034) ng/mL Triglycerides 150 H (<150) mg/dL HDL Cholesterol 14 L (40-60) mg/dL Ur Specific Sutton (1.001-1.035) Urine Protein (Negative) Urine Ketones (Negative) Urine Blood (Negative) Urine Bilirubin (Negative) Urine Mucus (None) /hpf Diabetes panel 04/19/19 04/20/19 Range/Units 11:00 02:59 Sodium 136 L (137-145) mmol/L Potassium 3.7 (3.5-5.1) mmol/L Chloride 104 (98-107) mmol/L Carbon Dioxide 21 L (22-30) mmol/L BUN 11 (9-20) mg/dL Creatinine 0.89 (0.66-1.25) mg/dL Glucose 105 H (74-99) mg/dL Calcium 8.3 L (8.4-10.2) mg/dL AST 38 (17-59) U/L ALT 36 (21-72) U/L Alkaline Phosphatase 69 (38-126) U/L Total Protein 6.5 (6.3-8.2) g/dL Albumin 3.5 (3.5-5.0) g/dL Triglycerides 150 H (<150) mg/dL HDL Cholesterol 14 L (40-60) mg/dL Calcium panel 04/19/19 Range/Units 11:00 Calcium 8.3 L (8.4-10.2) mg/dL Albumin 3.5 (3.5-5.0) g/dL Pituitary panel 04/19/19 Range/Units 11:00 Sodium 136 L (137-145) mmol/L Potassium 3.7 (3.5-5.1) mmol/L Chloride 104 (98-107) mmol/L Carbon Dioxide 21 L (22-30) mmol/L BUN 11 (9-20) mg/dL Creatinine 0.89 (0.66-1.25) mg/dL Glucose 105 H (74-99) mg/dL Calcium 8.3 L (8.4-10.2) mg/dL Adrenal panel 04/19/19 Range/Units 11:00 Sodium 136 L (137-145) mmol/L Potassium 3.7 (3.5-5.1) mmol/L Chloride 104 (98-107) mmol/L Carbon Dioxide 21 L (22-30) mmol/L BUN 11 (9-20) mg/dL Creatinine 0.89 (0.66-1.25) mg/dL Glucose 105 H (74-99) mg/dL Calcium 8.3 L (8.4-10.2) mg/dL Total Bilirubin 3.5 H (0.2-1.3) mg/dL AST 38 (17-59) U/L ALT 36 (21-72) U/L Alkaline Phosphatase 69 (38-126) U/L Total Protein 6.5 (6.3-8.2) g/dL Albumin 3.5 (3.5-5.0) g/dL - Imaging US - abdomen: report reviewed (2.1 cm gallstone with gallbladder sludge) Assessment and Plan Assessment: Improving acute cholecystitis. Patient will be scheduled for laparoscopic cholecystectomy once he has been cleared by medicine.
--- NOTE | 2019-04-20 13:02 | P.CONS ---
History of Present Illness - Reason for Consult Consult date: 04/20/19 Elevated bilirubin, gallstones Requesting physician: Ricky Barahona - Chief Complaint Fever, body aches, sore throat - History of Present Illness The patient is a pleasant 48-year-old male with a medical history significant for hypertension, hiatal hernia, internal hemorrhoids, and Hilario's esophagus who presented to the hospital with a constellation of symptoms. The patient reports 2-3 days of fevers, body aches and sore throat. The patient reports that this has been occurring after initially having an episode of abdominal pain. He states he had eaten at approximately 7:30 or 8 when he developed mid epigastric pain described as a severe pressure-like sensation. The patient states that the pain lasted for hours until midnight. The patient had 3-4 episodes of vomiting described as regurgitation of food she had eaten. On presentation to the hospital the patient reports resolution of his abdominal pain. Currently he reports having a bowel movement which she reports has provided more relief as he has not had a bowel movement in a few days since his symptoms started. He reports at baseline he has 1 daily bowel movement. Laboratory evaluation on presentation was significant for WBC 6.2, hemoglobin 14.2, platelet count 206,000, lactic acid 2.3, total bilirubin 3.5, AST 38, ALTs 36, alkaline phosphatase 39, with ultrasound of the abdomen significant for a large 2 cm stone with sludge and evidence of early cholecystitis as well as a dilated CBD. The patient reports he previously had endoscopic evaluation in 11/16/2018 which was significant for a hiatal hernia, Hilario's esophagus, gastritis on EGD as well as polypectomy and hemorrhoids on colonoscopy. He denies any prior episodes of gallbladder attacks or pain. Review of Systems REVIEW OF SYSTEMS: CONSTITUTIONAL: Denies any chills, weight change but does report subjective fevers and fatigue. CARDIOVASCULAR: Denies any chest pain, palpitations high or low blood pressures RESPIRATORY: Denies any shortness of breath, hemoptysis or cough. GENITOURINARY: No dysuria or hematuria. MUSCULOSKELETAL: No weakness reported. SKIN: Denies any new rashes or lesions, jaundice or pallor. PSYCHIATRIC: Denies any depression or anxiety. NEUROLOGY: Denies headache, denies any new focal deficits. EARS/NOSE/THROAT: No recent hearing change, congestion, nasal discharge or sore throat. EYES: No pain in eyes, discharge or change in vision. GASTROINTESTINAL: As per HPI. Past Medical History Past Medical History: GERD/Reflux, Hypertension Additional Past Medical History / Comment(s): HX OF PERICARDITIS (17 YRS OLD)., BLOOD IN STOOL., SLIGHT HEARING LOSS. 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 Past Anesthesia/Blood Transfusion Reactions: No Reported Reaction Past Psychological History: No Psychological Hx Reported Smoking Status: Never smoker Past Alcohol Use History: Occasional Past Drug Use History: None Reported - Past Family History Sister(s) Family Medical History: Cancer Additional Family Medical History / Comment(s): pancreatic Medications and Allergies Home Medications Medication Instructions Recorded Confirmed Type Omeprazole [PriLOSEC] 20 mg PO DAILY 05/19/15 04/19/19 History amLODIPine BESYLATE/BENAZEPRIL 1 cap PO DAILY 05/19/15 04/19/19 History [Amlodipine-Benazepril 5-10 mg] Allergies Allergy/AdvReac Type Severity Reaction Status Date / Time No Known Allergies Allergy Verified 04/19/19 13:24 Physical Exam Vitals: Vital Signs Temp Pulse Pulse Resp BP BP Pulse Ox 04/20/19 11:51 96 20 109/70 97 04/20/19 08:00 98.3 F 95 20 121/79 97 04/20/19 03:38 98 F 93 18 117/72 96 04/19/19 23:43 98.7 F 95 18 98/58 95 04/19/19 22:40 72/50 04/19/19 22:35 81/56 04/19/19 22:30 74/54 04/19/19 20:18 98.6 F 102 H 18 94/64 96 04/19/19 18:16 102 H 18 97/67 95 04/19/19 18:03 101 H 93/68 04/19/19 17:42 104 H 18 94/61 98 04/19/19 17:10 99 F 104 H 18 89/56 95 04/19/19 16:05 100.4 F H 105 H 16 96/59 95 04/19/19 13:50 105 H 18 99/66 95 Intake and Output 04/19/19 04/20/19 04/20/19 22:59 06:59 14:59 Intake Total 500 Output Total 1450 Balance -950 Intake: Intake, IV Titration 500 Amount Sodium Chloride 0.9% 1, 500 000 ml @ 125 mls/hr IV . Q8H [facility] Rx#:[id number] Output: Urine 1450 Other: # Voids 1 Weight 122 kg On physical examination, patient appears comfortable in no apparent distress. HEAD: Normocephalic, atraumatic. EYES: Mild scleral icterus. No conjunctival injection. MOUTH: No lesions, tongue midline. NECK: Trachea midline, no gross abnormalities. CHEST: Clear to auscultation with no wheezing or rhonchi appreciated. HEART: Regular rate and rhythm. ABDOMEN: Soft, obese. Bowel sounds are positive. No organomegaly. No guarding or rigidity. EXTREMITIES: No pedal edema. SKIN: No rashes, mild jaundice. NEUROLOGIC: Alert and oriented x3. No focal deficits. Results CBC & Chem 7: 04/19/19 11:00 04/19/19 11:00 Labs: Abnormal Lab Results - Last 24 Hours (Table) 04/19/19 04/19/19 04/19/19 Range/Units 11:00 15:08 15:24 Lymphocytes # (Manual) 0.50 L (1.0-4.8) k/uL Metamyelocytes # (Man) 0.06 H (0) k/uL Plasma Lactic Acid Jimy 2.3 H* (0.7-2.0) mmol/L Troponin I (0.000-0.034) ng/mL Triglycerides (<150) mg/dL HDL Cholesterol (40-60) mg/dL Ur Specific [place] >1.050 H (1.001-1.035) Urine Protein 2+ H (Negative) Urine Ketones Trace H (Negative) Urine Blood Trace H (Negative) Urine Bilirubin 2+ H (Negative) Urine Mucus Occasional H (None) /hpf 04/19/19 04/19/19 04/20/19 Range/Units 18:44 22:17 02:59 Lymphocytes # (Manual) (1.0-4.8) k/uL Metamyelocytes # (Man) (0) k/uL Plasma Lactic Acid Jimy (0.7-2.0) mmol/L Troponin I 0.098 H* 0.083 H* (0.000-0.034) ng/mL Triglycerides 150 H (<150) mg/dL HDL Cholesterol 14 L (40-60) mg/dL Ur Specific [place] (1.001-1.035) Urine Protein (Negative) Urine Ketones (Negative) Urine Blood (Negative) Urine Bilirubin (Negative) Urine Mucus (None) /hpf US - abdomen: report reviewed (Ultrasound of the abdomen with findings of large gallstone, sludge, early cholecystitis and a dilated CBD) Assessment and Plan (1) Total bilirubin, elevated Narrative/Plan: 48-year-old with history of Hilario's esophagus on home omeprazole therapy and hypertension who presented to the hospital with complaints of fever, weakness, sore throat as well as an episode of abdominal pain which lasted a few hours in duration. Patient had isolated elevation in his bilirubin at 3.5 with other liver enzymes in the normal range as well as ultrasound findings of early cholecystitis, gallstone, sludge and a dilated CBD. Differential includes cholecystitis, choledocholithiasis, or incidental findings in the setting of other viral/bacterial infection. Current Visit: Yes Status: Acute Code(s): R17 - UNSPECIFIED JAUNDICE SNOMED Code(s): 017315687718869 (2) Cholecystitis Current Visit: Yes Status: Acute Code(s): K81.9 - CHOLECYSTITIS, UNSPECIFIED SNOMED Code(s): 57326379 (3) Epigastric pain Current Visit: Yes Status: Acute Code(s): R10.13 - EPIGASTRIC PAIN SNOMED Code(s): 51167475 Plan: Supportive care Surgical service and infectious disease service consult that Currently on ceftriaxone, deferred to ID recommendations We'll repeat CMP Viral hepatitis panel ordered MRCP ordered to rule out choledocholithiasis Continue to monitor symptomatically Case discussed at length with the patient and his , if choledocholithiasis is noted on MR imaging will proceed with ERCP with timing to be determined, otherwise we'll continue antibiotic therapy at this time as patient is being evaluated by other subspecialties Thank you for allowing us to participate in the care of the patient we will cont inue to follow
[2019-04-20 13:33] LABS: ALT 39 U/L (21-72); AST 32 U/L (17-59); African American GFR (CKD) >90 (>60 ml/min/1.73 sqM); Albumin 2.9 g/dL (3.5-5.0); Alkaline Phosphatase 52 U/L (38-126); Anion Gap 12 mmol/L; Blood Urea Nitrogen 14 mg/dL (9-20); Calcium 8.1 mg/dL (8.4-10.2); Carbon Dioxide 19 mmol/L (22-30); Chloride 106 mmol/L (98-107); Glucose 108 mg/dL (74-99); Potassium 4.4 mmol/L (3.5-5.1); Sodium 137 mmol/L (137-145); Total Bilirubin 3.5 mg/dL (0.2-1.3); Total Protein 5.6 g/dL (6.3-8.2)
--- NOTE | 2019-04-20 14:37 | P.CRDCN ---
History of Present Illness Consult date: 04/20/19 Requesting physician: Ricky Barahona Reason for Consult (text): Abnormal troponin Chief complaint: Fever, body aches, sore throat and epigastric discomfort History of present illness: 'reymundo is a 48-year-old gentleman with past medical history significant for hypertension, hiatal hernia, Hilario's esophagus, history of pericarditis at the age of 17, occasional EtOH use, patient presents to the hospital with symptoms of fevers, generalized body aches, sore throat, abdominal discomfort and epigas tric discomfort. According to the patient prior to the symptoms starting he had just eaten a meal, it initially started as mid epigastric discomfort and then he described it as a severe pressure sensation in his abdomen, it lasted for multiple hours. Subsequent to that he had 3-4 episodes of vomiting. Ultrasound of the abdomen showed early acute cholecystitis and dilated common bile duct, cholelithiasis, biliary sludge and upper limits of normal size of the gallbladder. Soft tissue neck CT did not reveal any abnormality. EKG showed a sinus tachycardia with nonspecific ST-T wave changes. Blood pressure on arrival 105/70 with a heart rate of 116, 95% on room air. White blood cell count is normal, hemoglobin 14.2, platelet count 206. Sodium 136 on arrival 137 this morning, potassium 3.7 on arrival 4.4 this morning. BUN 14 creatinine 0.9. Lactic acid 2.3. Troponin 0.21, 0.09, 0.08. Patient has been seen by surgical services, plan is for laparoscopic cholecystectomy once cleared. Cardiology consultation was requested because of abnormal troponins. Past Medical History Past Medical History: GERD/Reflux, Hypertension Additional Past Medical History / Comment(s): HX OF PERICARDITIS (17 YRS OLD)., BLOOD IN STOOL., SLIGHT HEARING LOSS. 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 Past Anesthesia/Blood Transfusion Reactions: No Reported Reaction Past Psychological History: No Psychological Hx Reported Smoking Status: Never smoker Past Alcohol Use History: Occasional Past Drug Use History: None Reported - Past Family History Sister(s) Family Medical History: Cancer Additional Family Medical History / Comment(s): pancreatic Medications and Allergies Home Medications Medication Instructions Recorded Confirmed Type Omeprazole [PriLOSEC] 20 mg PO DAILY 05/19/15 04/19/19 History amLODIPine BESYLATE/BENAZEPRIL 1 cap PO DAILY 05/19/15 04/19/19 History [Amlodipine-Benazepril 5-10 mg] Allergies Allergy/AdvReac Type Severity Reaction Status Date / Time No Known Allergies Allergy Verified 04/19/19 13:24 Physical Exam Vitals: Vital Signs Temp Pulse Pulse Resp BP BP Pulse Ox 04/20/19 11:51 96 20 109/70 97 04/20/19 08:00 98.3 F 95 20 121/79 97 04/20/19 03:38 98 F 93 18 117/72 96 04/19/19 23:43 98.7 F 95 18 98/58 95 04/19/19 22:40 72/50 04/19/19 22:35 81/56 04/19/19 22:30 74/54 04/19/19 20:18 98.6 F 102 H 18 94/64 96 04/19/19 18:16 102 H 18 97/67 95 04/19/19 18:03 101 H 93/68 04/19/19 17:42 104 H 18 94/61 98 04/19/19 17:10 99 F 104 H 18 89/56 95 04/19/19 16:05 100.4 F H 105 H 16 96/59 95 Intake and Output 04/19/19 04/20/19 04/20/19 22:59 06:59 14:59 Intake Total 500 360 Output Total 1450 Balance -950 360 Intake: Intake, IV Titration 500 Amount Sodium Chloride 0.9% 1, 500 000 ml @ 125 mls/hr IV . Q8H [facility] Rx#:[id number] Oral 360 Output: Urine 1450 Other: # Voids 1 Weight 122 kg PHYSICAL EXAMINATION: GENERAL: 88-year-old gentleman in no acute distress at the time of my examination HEENT: Head is atraumatic, normocephalic. Pupils equal, round. Sclera anicteric. Conjunctiva are clear. Mucous membranes of the mouth are moist. Neck is supple. There is no elevated jugular venous pressure. No carotid bruit is heard. HEART EXAMINATION: [Heart S1, S2 normal. No murmur or gallop heard.] CHEST EXAMINATION:[ Lungs are clear to auscultation and precussion. No chest wall tenderness is noted on palpation or with deep breathing.] ABDOMEN: [ Soft, mild generalized tenderness . Mild midepigastric tenderness. Bowel sounds are heard. No organomegaly noted]. EXTREMITIES:[ 2+ peripheral pulses with no evidence of peripheral edema and no calf tenderness noted]. NEUROLOGIC [patient is awake, alert and oriented 3 .] . Results 04/19/19 11:00 04/20/19 06:00 Cardiac Enzymes 04/19/19 04/19/19 04/20/19 Range/Units 18:44 22:17 06:00 AST 32 (17-59) U/L Troponin I 0.098 H* 0.083 H* (0.000-0.034) ng/mL Lipids 04/20/19 Range/Units 02:59 Triglycerides 150 H (<150) mg/dL Cholesterol 96 (<200) mg/dL HDL Cholesterol 14 L (40-60) mg/dL Comprehensive Metabolic Panel 04/20/19 Range/Units 06:00 Sodium 137 (137-145) mmol/L Potassium 4.4 (3.5-5.1) mmol/L Chloride 106 (98-107) mmol/L Carbon Dioxide 19 L (22-30) mmol/L BUN 14 (9-20) mg/dL Creatinine 0.96 (0.66-1.25) mg/dL Glucose 108 H (74-99) mg/dL Calcium 8.1 L (8.4-10.2) mg/dL AST 32 (17-59) U/L ALT 39 (21-72) U/L Alkaline Phosphatase 52 (38-126) U/L Total Protein 5.6 L (6.3-8.2) g/dL Albumin 2.9 L (3.5-5.0) g/dL Current Medications Generic Name Dose Route Start Last Admin Trade Name Freq PRN Reason Stop Dose Admin Acetaminophen 650 mg 04/19/19 20:48 04/20/19 05:32 Tylenol Oral Susp PO 650 mg Q4H PRN Administration Fever Amlodipine Besylate 5 mg 04/20/19 09:00 04/20/19 11:39 Norvasc PO Not Given DAILY MAE Sodium Chloride 1,000 mls @ 125 mls/hr 04/19/19 23:00 04/20/19 05:35 Saline 0.9% IV 125 mls/hr .Q8H MAE Administration Ceftriaxone Sodium 2 gm/ 50 mls @ 100 mls/hr 04/20/19 12:45 Sodium Chloride IVPB Q24HR MAE Ibuprofen 600 mg 04/19/19 20:52 04/20/19 09:29 Motrin Oral Susp Cup PO 600 mg Q6H PRN Administration Fever and/or Mild Pain Lisinopril 10 mg 04/20/19 09:00 04/20/19 11:39 Zestril PO Not Given DAILY MAE Melatonin 5 mg 04/19/19 21:00 04/19/19 21:37 Melatonin PO 5 mg HS MAE Administration Naloxone HCl 0.2 mg 04/19/19 13:16 Narcan IV Q2M PRN Opioid Reversal Pantoprazole Sodium 40 mg 04/20/19 07:30 04/20/19 06:52 Protonix PO Not Given AC-BRKFST MAE Intake and Output 04/19/19 04/20/19 04/20/19 22:59 06:59 14:59 Intake Total 500 360 Output Total 1450 Balance -950 360 Intake: Intake, IV Titration 500 Amount Sodium Chloride 0.9% 1, 500 000 ml @ 125 mls/hr IV . Q8H [facility] Rx#:[id number] Oral 360 Output: Urine 1450 Other: # Voids 1 Weight 122 kg 04/19/19 11:00 04/20/19 06:00 EKG Interpretations (text) EKG shows a sinus tachycardia with nonspecific ST-T wave changes. Assessment and Plan Plan: Assessment and plan #1 symptoms of generalized body aches with associated fever at home. Elevated lactic acid on admission. #2 epigastric and abdominal discomfort, elevated total bilirubin and evidence of cholecystitis #3 history of Hilario's esophagus #4 abnormal troponin, likely secondary to infection #5.Gerd Plan We will obtain an echocardiogram with Doppler study. We also recommend an influenza test be performed. We'll obtain a d-dimer. Blood pressure running in the 80s to low 90s, sinus tachycardia. Would recommend to discontinue the Norvasc decrease lisinopril to 5 mg daily. Repeat EKG. Obtain TSH level. Further recommendations to follow. DNP note has been reviewed, I agree with a documented findings and plan of care. Patient was seen and examined.
[2019-04-20] MEDS ORDERED: ACETAMINOPHEN ORAL SUSP (PEDS) 3,840 MG/120 ML BOTTLE PO PRN (16:19)
[2019-04-20] MEDS: ACETAMINOPHEN ORAL SUSP (PEDS) 3,840 MG/120 ML BOTTLE PO PRN ×2 (18:14→23:03)
[2019-04-20] MEDS: ENOXAPARIN 40 MG/0.4 ML SYRINGE SQ SCH (18:14)
[2019-04-20 18:18] LABS: Hepatitis A Antibody IgM Non-Reactive (Non-Reactive); Hepatitis B Core IgM Non-Reactive (Non-Reactive)
[2019-04-20] MEDS: MELATONIN 5 MG TABLET PO SCH (20:22)
[2019-04-20] MEDS ORDERED: SODIUM CHLORIDE 0.65% NASAL SPRAY 44 ML BTL NASAL PRN (20:23)
--- NOTE | 2019-04-20 22:50 | HP ---
HISTORY AND PHYSICAL DATE OF ADMISSION: 04/19/2019 DATE OF SERVICE: 04/20/2019. PRESENT COMPLAINT: Not feeling well. HISTORY OF PRESENTING COMPLAINT: This is a very pleasant 48-year-old patient of Dr. Bryant who is here with his . Normally in rather good health. The patient on Monday was at work, really felt sick, came home and developed pain in the epigastric area, vomited x2 and went to bed. The next day he developed a headache, fever and chills, and laid down, really did not go to work. felt the same not feeling well. He finally decided to go down to the ER, was hurting all over. He was told he has got a viral illness, was sent home. The patient has continued to feel more and more worse. Also had a sore throat. Did have a bowel movement since Monday and then presented again feeling really weak, tired, hurting all over, also some pain in the neck. There is no photophobia. Admitted for the same. REVIEW OF SYSTEMS: CONSTITUTIONAL: Weak, tired rundown, had fevers at home. HEENT None. RESPIRATORY none. CARDIOVASCULAR: No chest pain. GASTROINTESTINAL had abdominal pain earlier. None so. GENITOURINARY none. MUSCULOSKELETAL: Aching all over, feeling weak. PSYCHIATRY none. NEUROLOGICAL generalized weakness all over. PAST MEDICAL HISTORY: GERD, hypertension, slight hearing loss. PAST SURGICAL HISTORY: Tonsillectomy, arthroscopy right knee. He has had ibuprofen stuck in the esophageal stricture in the past. SOCIAL HISTORY: Does not smoke. Alcohol occasionally. Works in an office job. . FAMILY HISTORY: Pancreatic cancer. HOME MEDICATIONS: 1. Amlodipine. 2. Benazepril 5/10 1 tablet p.o. daily. 3. Omeprazole 20 mg p.o. daily. ALLERGIES: None. PHYSICAL EXAMINATION: VITAL SIGNS: Vital signs on presentation: Temperature 100.4, pulse 105, respirations 16, blood pressure 89/56, pulse ox 95% on room air. GENERAL APPEARANCE: Well built. BMI 32.7. Lying in bed, awake, tired-appearing. EYES: Pupils are equal. Conjunctivae normal. HEENT: External appearance of nose and ears normal. Oral cavity normal. NECK: JVD not raised. Mass not palpable. RESPIRATORY effort normal. LUNGS fair entry. CARDIOVASCULAR: First and second sounds normal. No edema. ABDOMEN: Soft, nontender. Liver and spleen not palpable. LYMPHATICS: No lymph nodes palpable in the neck, or axillae. PSYCHIATRY: Alert and oriented times three. Mood and affect normal. NEUROLOGICAL: Generalized weakness in all the 4 limbs. Able to lift them off the bed. INVESTIGATIONS: In clinical context, white count 6.2, hemoglobin 14.2, decreased lymphocytes. Potassium 3.7, BUN 11, creatinine 0.89. Lactic acid 2.3, total bilirubin 3.5. Troponin 0.2, 0.098. UA positive for protein 2+, bilirubin 2+. Abdominal ultrasound suggested acute cholecystitis. There is dilated common bile duct, cholelithiasis, biliary sludge. There is no pericholecystic fluid or sonographic Patiño sign, soft tissue neck CT unremarkable. EKG tracing personally reviewed by me shows some elevation ST-segment elevation in anterior leads and some ST-segment depression in the lateral leads. ASSESSMENT: This is a patient who is rather well built in good shape, very healthy, otherwise, presents for 5 days of nausea, vomiting. He has aching all over the body, has a troponin leak with some EKG changes that is suggestive of myocarditis. UA has got 2+ protein suggestive of maybe nephritis and even though the gallstones not entirely convincing for acute cholecystitis and he is aching all over the body suggestive for myositis. The patient also has got no leukocytosis with a leukopenia suggestive of overall of severe viral syndrome. At this point, I am not convinced that this is acute cholecystitis. Consultations have been made with GI surgery, cardiology, Infectious Disease. Will send off serologies for also for Cynthia Bar virus, cytomegalovirus. The patient is empirically currently on antibiotics. Will follow. We will also get a nephrology opinion. Care was discussed with the patient at the bedside. Follow up with colleagues. Copy to Dr. Bryant in [place]. MMODL / IJN: [id number] /
--- NOTE | 2019-04-20 22:51 | P.CONS ---
History of Present Illness - Reason for Consult Consult date: 04/20/19 Fever Requesting physician: Ricky Barahona - Chief Complaint Not feeling well and generalized body aches and fever 3 days - History of Present Illness Patient is a 48-year-old male presenting to the ER at [facility] for evaluation of generalized body aches and weakness and fever the patient's symptoms started on Monday that is about 4 days prior to presentation to the hospital, and she started nausea and vomiting and not feeling well did have some epigastric discomfort more of a dull aching pain off and on 3-4 out of 10 and no radiation no significant diarrhea patient be complaining of some headache and sore throat but no other URI symptomsany shortness of breath or cough or chest pain with the symptoms and the patient was initially evaluated at [facility] ER and was diagnosed with possible viral syndrome and sent home however the patient presented back within 3 hours a chief complaints of generalized weakness and inability to get up and walk around patient on blood work was adjusted slightly which led To Contact His White Count Was Normal Been Was Elevated at 3.5 the ALT and AST Were Normal Patient Did Have a CT of the Soft Tissue the Neck Did Not Show Any Abnormality Ultrasound of the Abdomen Was Suspicious for a Possible Early Cholecystitis Patient Did Receive 1 Dose of Rocephin and Flagyl Admitted to the Hospital Infectious Disease Was Consulted for Further Recommendation regarding Antibiotic Therapy, he Did Have Mild Elevation of Troponin and EKG with Nonspecific ST-T 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 Past Anesthesia/Blood Transfusion Reactions: No Reported Reaction Past Psychological History: No Psychological Hx Reported Smoking Status: Never smoker Past Alcohol Use History: Occasional Past Drug Use History: None Reported - Past Family History Sister(s) Family Medical History: Cancer Additional Family Medical History / Comment(s): pancreatic Medications and Allergies Home Medications Medication Instructions Recorded Confirmed Type Omeprazole [PriLOSEC] 20 mg PO DAILY 05/19/15 04/19/19 History amLODIPine BESYLATE/BENAZEPRIL 1 cap PO DAILY 05/19/15 04/19/19 History [Amlodipine-Benazepril 5-10 mg] Allergies Allergy/AdvReac Type Severity Reaction Status Date / Time No Known Allergies Allergy Verified 04/19/19 13:24 Physical Exam Vitals: Vital Signs Temp Pulse Pulse Resp BP BP Pulse Ox 04/20/19 11:51 96 20 109/70 97 04/20/19 08:00 98.3 F 95 20 121/79 97 04/20/19 03:38 98 F 93 18 117/72 96 04/19/19 23:43 98.7 F 95 18 98/58 95 04/19/19 22:40 72/50 04/19/19 22:35 81/56 04/19/19 22:30 74/54 04/19/19 20:18 98.6 F 102 H 18 94/64 96 04/19/19 18:16 102 H 18 97/67 95 04/19/19 18:03 101 H 93/68 04/19/19 17:42 104 H 18 94/61 98 04/19/19 17:10 99 F 104 H 18 89/56 95 04/19/19 16:05 100.4 F H 105 H 16 96/59 95 04/19/19 13:50 105 H 18 99/66 95 Intake and Output 04/19/19 04/20/19 04/20/19 22:59 06:59 14:59 Intake Total 500 Output Total 1450 Balance -950 Intake: Intake, IV Titration 500 Amount Sodium Chloride 0.9% 1, 500 000 ml @ 125 mls/hr IV . Q8H [facility] Rx#:[id number] Output: Urine 1450 Other: # Voids 1 Weight 122 kg GENERAL DESCRIPTION: Middle-aged male lying in bed, no distress. No tachypnea or accessory muscle of respiration use. HEENT: Shows Pallor , no scleral icterus. Oral mucous membrane is dry. No pharyngeal erythema or thrush NECK: Trachea central, no thyromegaly. LUNGS: Unlabored breathing. Clear to auscultation anteriorly. No wheeze or crackle. HEART: S1, S2, regular rate and rhythm. No loud murmur ABDOMEN: Soft, no tenderness , guarding or rigidity, no organomegaly EXTREMITIES: No edema of feet. SKIN: No rash, no masses palpable. NEUROLOGICAL: The patient is awake, alert, oriented x3, mood and affect normal Results CBC & Chem 7: 04/19/19 11:00 04/20/19 06:00 Labs: Abnormal Lab Results - Last 24 Hours (Table) 04/19/19 04/19/19 04/19/19 Range/Units 11:00 15:08 15:24 Lymphocytes # (Manual) 0.50 L (1.0-4.8) k/uL Metamyelocytes # (Man) 0.06 H (0) k/uL Plasma Lactic Acid Jimy 2.3 H* (0.7-2.0) mmol/L Troponin I (0.000-0.034) ng/mL Triglycerides (<150) mg/dL HDL Cholesterol (40-60) mg/dL Ur Specific [place] >1.050 H (1.001-1.035) Urine Protein 2+ H (Negative) Urine Ketones Trace H (Negative) Urine Blood Trace H (Negative) Urine Bilirubin 2+ H (Negative) Urine Mucus Occasional H (None) /hpf 04/19/19 04/19/19 04/20/19 Range/Units 18:44 22:17 02:59 Lymphocytes # (Manual) (1.0-4.8) k/uL Metamyelocytes # (Man) (0) k/uL Plasma Lactic Acid Jimy (0.7-2.0) mmol/L Troponin I 0.098 H* 0.083 H* (0.000-0.034) ng/mL Triglycerides 150 H (<150) mg/dL HDL Cholesterol 14 L (40-60) mg/dL Ur Specific [place] (1.001-1.035) Urine Protein (Negative) Urine Ketones (Negative) Urine Blood (Negative) Urine Bilirubin (Negative) Urine Mucus (None) /hpf Assessment and Plan Assessment: 1-patient presented to hospital with fever and generalized body aches and weakness and no energy in this patient who did have a low-grade fever 100.4 his white count has been normal liver enzymes normal except bilirubin of 3.5 with a question of possible viral syndrome suggests acute CMV or EBV with elevated troponin level and nonspecific ST-T wave changes may point was possible pericarditis, an echocardiogram has been ordered for tomorrow morning, underlying cholecystitis less likely but not entirely excluded Plan: 1-await echocardiogram as well as MR of the abdomin as has ordered by GI 2-CMV and EBV serology 3-empirically covered with a Rocephin while waiting for condition stabilized and cultures to finalize we will follow up on clinical condition and cultures to further adjust medication if needed Thank you for this consultation will follow this patient along with you Time with Patient: Greater than 30
[2019-04-21 06:34] LABS: Basophils % (A) 0 %; Eosinophils # (A) 0.1 k/uL (0-0.7); Eosinophils % (A) 2 %; HCT 35.9 % (39.0-53.0); Lymphocytes # (A) 0.8 k/uL (1.0-4.8); Lymphocytes % (A) 17 %; MCH 28.5 pg (25.0-35.0); MCHC 33.4 g/dL (31.0-37.0); MCV 85.4 fL (80.0-100.0); Mean Platelet Volume 7.3; Monocytes # (A) 0.1 k/uL (0-1.0); Monocytes % (A) 3 %; Neutrophils # (A) 3.8 k/uL (1.3-7.7); Neutrophils % (A) 78 %; Platelet Count 192 k/uL (150-450); RBC 4.21 m/uL (4.30-5.90); RDW 13.8 % (11.5-15.5); WBC 4.9 k/uL (3.8-10.6)
[2019-04-21] MEDS: SODIUM CHLORIDE 0.9% 1,000 ML IV SCH ×2 (06:38→17:18)
[2019-04-21] MEDS: PANTOPRAZOLE SODIUM 40 MG GRANULE PKT PO SCH (06:39)
[2019-04-21 06:54] LABS: ALT 26 U/L (21-72); AST 29 U/L (17-59); African American GFR (CKD) >90 (>60 ml/min/1.73 sqM); Albumin 2.4 g/dL (3.5-5.0); Alkaline Phosphatase 66 U/L (38-126); Anion Gap 6 mmol/L; Blood Urea Nitrogen 10 mg/dL (9-20); Calcium 7.6 mg/dL (8.4-10.2); Carbon Dioxide 24 mmol/L (22-30); Chloride 106 mmol/L (98-107); Glucose 100 mg/dL (74-99); Potassium 3.6 mmol/L (3.5-5.1); Sodium 136 mmol/L (137-145); Total Bilirubin 1.1 mg/dL (0.2-1.3)
[2019-04-21] MEDS: LISINOPRIL 5 MG TAB PO SCH (08:30)
[2019-04-21] MEDS: ENOXAPARIN 40 MG/0.4 ML SYRINGE SQ SCH (08:30)
[2019-04-21] MEDS: ACETAMINOPHEN ORAL SUSP (PEDS) 3,840 MG/120 ML BOTTLE PO PRN ×2 (08:35→17:18)
[2019-04-21] MEDS ORDERED: REGADENOSON 0.4 MG/5 ML SYRINGE IV ONE (10:44)
--- NOTE | 2019-04-21 10:59 | P.PN ---
Progress Note - Text Progress Note Date: 04/21/19 The patient feels slightly better today. He's had some complaints of nausea. On exam his vital signs are stable. His abdomen soft. There is some minimal tenderness right upper quadrant. Improving acute cholecystitis. Patient will undergo laparoscopic cholecystectomy when cleared by cardiology.
--- NOTE | 2019-04-21 11:06 | P.NPCON ---
History of Present Illness - Reason for Consult proteinuria - History of Present Illness Reason for consultation: Possible glomerulonephritis History of present illness: Patient is a 48-year-old male seen in consultation for concern for possible glomerulonephritis. She presented to the hospital on April 19 with generalized weakness and fever. Patient states last Monday he left work early as he wasn't feeling well. When he went home he had multiple episodes of vomiting. Patient developed fever with tremors. According to his his temperature was up to 102.4F. Patient also developed headaches. Due to not feeling well he came to the hospital. Patient states he also had a sore throat which is now resolved. He is now able to keep food down. No further vomiting or diarrhea. He denies any prior history of kidney disease. No family history of renal disease. He has been voiding. No hematuria or dysuria. Patient states he was diagnosed with pericarditis during his teenage years and has had no issues since. No history of hepatitis or HIV. No history of diabetes. There is concern for myocarditis. Patient's CMV, hepatitis and influenza titers have been negative. Patient's initial UA revealed trace proteinuria and on repeat he was noted to have 2+ proteinuria. Hemodynamically stable. GFR is at baseline. Vital signs are stable. General: The patient appeared well nourished and normally developed. HEENT: Head exam is unremarkable. Neck is without jugular venous distension. LUNGS: Lungs are clear to auscultation and percussion. Breath sounds decreased. HEART: Rate and Rhythm are regular. First and second heart sounds normal. No murmurs, rubs or gallops. ABDOMEN: Abdominal exam reveals normal bowel sounds. Non-tender and non- distended. No evidence of peritonitis. EXTREMITITES: No clubbing, cyanosis, or edema. Past Medical History Past Medical History: GERD/Reflux, Hypertension Additional Past Medical History / Comment(s): HX OF PERICARDITIS (17 YRS OLD)., BLOOD IN STOOL., SLIGHT HEARING LOSS. 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 Past Anesthesia/Blood Transfusion Reactions: No Reported Reaction Past Psychological History: No Psychological Hx Reported Smoking Status: Never smoker Past Alcohol Use History: Occasional Past Drug Use History: None Reported - Past Family History Sister(s) Family Medical History: Cancer Additional Family Medical History / Comment(s): pancreatic Medications and Allergies Home Medications Medication Instructions Recorded Confirmed Type Omeprazole [PriLOSEC] 20 mg PO DAILY 05/19/15 04/19/19 History amLODIPine BESYLATE/BENAZEPRIL 1 cap PO DAILY 05/19/15 04/19/19 History [Amlodipine-Benazepril 5-10 mg] Allergies Allergy/AdvReac Type Severity Reaction Status Date / Time No Known Allergies Allergy Verified 04/19/19 13:24 Physical Exam Vitals: Vital Signs Temp Pulse Resp BP Pulse Ox 04/21/19 08:00 98.7 F 99 20 119/83 97 04/21/19 03:30 99.4 F 98 18 110/72 93 L 04/20/19 23:33 98.8 F 94 18 107/62 94 L 04/20/19 20:22 99.1 F 104 H 18 122/74 96 04/20/19 16:00 98.6 F 101 H 20 128/80 97 04/20/19 11:51 96 20 109/70 97 Intake and Output 04/20/19 04/21/19 04/21/19 22:59 06:59 14:59 Intake Total 250 400 Balance 250 400 Intake: Intake, IV Titration 250 Amount Sodium Chloride 0.9% 1, 250 000 ml @ 125 mls/hr IV . Q8H [facility] Rx#:[id number] Oral 400 Other: Weight 123 kg Results - Lab Results Most recent lab results Calcium 7.6 mg/dL (8.4-10.2) L 04/21/19 05:55 04/21/19 05:55 04/21/19 05:55 Assessment and Plan Plan: Assessment: 1. Proteinuria. Rule out GN. Patient's albumin level is 2.4 today. This can be due to acute illness but again need to rule out nephrotic syndrome. GFR is at baseline. 2. Fever with weakness. CMV, hepatitis and influenza titers have been negative. There is concern for pericarditis. 3. Hyperbilirubinemia. GI following. MRI of the abdomen pending. 4. Benign hypertension. Controlled. Plan: I will decrease the rate of normal saline to 75 mL an hour. Quantify proteinuria. Check serologies. Avoid nephrotoxins. Thank you for the consultation. I will continue to follow the patient with you during his hospital stay.
--- NOTE | 2019-04-21 15:53 | P.PN ---
Subjective Progress Note Date: 04/21/19 This is a 48-year-old gentleman with history of hypertension, Hilario's esophagus and history of pericarditis at age 17, was admitted to the hospital with generalized body aches and fevers sore throat and abdominal discomfort and also epigastric discomfort. Ultrasound of the abdomen showed fairly cholecys titis and dilated common bile duct and also cholelithiasis. Patient was seen by general surgeon, who felt that patient may need a cholecystectomy. His troponin values are abnormal. However, the pattern was not consistent with acute myocardial infarction. Echo Cardigan showed normal LV function. EKG did not really any acute changes. In view of the need for surgery, patient is being scheduled for a Lexiscan stress test tomorrow. If that doesn't show any inducible ischemia, patient could be considered for surgery Objective - Vital Signs Vital signs: Vital Signs Temp 98.8 F 04/21/19 12:00 Pulse 86 04/21/19 12:00 Resp 20 04/21/19 12:00 BP 156/87 04/21/19 12:00 Pulse Ox 95 04/21/19 12:00 Intake & Output 04/20/19 04/21/19 04/21/19 18:59 06:59 18:59 Intake Total 360 650 Output Total 1125 Balance 360 650 -1125 Weight 123 kg Intake: Intake, IV Titration 250 Amount Sodium Chloride 0.9% 1, 250 000 ml @ 125 mls/hr IV . Q8H [facility] Rx#:[id number] Oral 360 400 Output: Urine 1125 Other: # Voids 1 1 - Exam GENERAL EXAM: Patient is alert and oriented and doesn't appear to be in any acu te distress HEENT: Normocephalic. Normal reaction of pupils, equal size, normal range of extraocular motion. No erythema or exudates in the throat. NECK: No masses, no nuchal rigidity. CHEST: No chest wall deformity. LUNGS: Equal air entry with no crackles or wheeze. HEART: S1 and S2 normal with no audible mumurs or gallops. Regular rhythm, femorals equal on both sides.. ABDOMEN: No hepatosplenomegaly, normal bowel sounds, no guarding or rigidity. SKIN: No rashes CENTRAL NERVOUS SYSTEM: No focal deficits. EXTREMITIES: No cyanosis, clubbing or edema. - Labs CBC & Chem 7: 04/21/19 05:55 06/09/19 05:55 Labs: Abnormal Lab Results - Last 24 Hours (Table) 04/21/19 04/21/19 Range/Units 05:55 05:55 RBC 4.21 L (4.30-5.90) m/uL Hgb 12.0 L (13.0-17.5) gm/dL Hct 35.9 L (39.0-53.0) % Lymphocytes # 0.8 L (1.0-4.8) k/uL Sodium 136 L (137-145) mmol/L Glucose 100 H (74-99) mg/dL Calcium 7.6 L (8.4-10.2) mg/dL Total Protein 5.0 L (6.3-8.2) g/dL Albumin 2.4 L (3.5-5.0) g/dL Microbiology - Last 24 Hours (Table) 04/19/19 11:00 Blood Culture - Preliminary Blood No Growth after 48 hours Assessment and Plan Plan: Patient is admitted with generalized body aches, fever and abdominal discomfort. There is questionable cholecystitis. From cardiac standpoint. Patient had abnormal troponin values. Echo however showed normal LV function. Patient is being scheduled for a Lexiscan stress test tomorrow
--- NOTE | 2019-04-21 18:15 | P.PN ---
Subjective Progress Note Date: 04/21/19 Principal diagnosis: Elevated liver enzymes Patient lying in bed, tolerating diet. He reports that he is feeling better overall. Objective - Vital Signs Vital signs: Vital Signs Temp 99.9 F H 04/21/19 16:00 Pulse 94 04/21/19 16:00 Resp 20 04/21/19 16:00 BP 131/77 04/21/19 16:00 Pulse Ox 97 04/21/19 16:00 Intake & Output 04/20/19 04/21/19 04/21/19 18:59 06:59 18:59 Intake Total 360 650 Output Total 1125 Balance 360 650 -1125 Weight 123 kg Intake: Intake, IV Titration 250 Amount Sodium Chloride 0.9% 1, 250 000 ml @ 75 mls/hr IV . [id number] [facility] Rx#:[id number] Oral 360 400 Output: Urine 1125 Other: # Voids 1 3 - Exam On physical examination, patient appears comfortable in no apparent distress. HEAD: Normocephalic, atraumatic. EYES: No scleral icterus. No conjunctival injection. MOUTH: No lesions, tongue midline. NECK: Trachea midline, no gross abnormalities. CHEST: Clear to auscultation with no wheezing or rhonchi appreciated. HEART: Regular rate and rhythm. ABDOMEN: Soft, obese. Bowel sounds are positive. No organomegaly. No guarding or rigidity. EXTREMITIES: No pedal edema. SKIN: No rashes, no jaundice. NEUROLOGIC: Alert and oriented x3. No focal deficits. - Labs CBC & Chem 7: 04/21/19 05:55 04/21/19 05:55 Labs: Abnormal Lab Results - Last 24 Hours (Table) 04/21/19 04/21/19 04/21/19 Range/Units 05:55 05:55 17:00 RBC 4.21 L (4.30-5.90) m/uL Hgb 12.0 L (13.0-17.5) gm/dL Hct 35.9 L (39.0-53.0) % Lymphocytes # 0.8 L (1.0-4.8) k/uL Sodium 136 L (137-145) mmol/L Glucose 100 H (74-99) mg/dL Calcium 7.6 L (8.4-10.2) mg/dL Total Protein 5.0 L (6.3-8.2) g/dL Albumin 2.4 L (3.5-5.0) g/dL U Random Total Protein 51 H (<12) mg/dL Microbiology - Last 24 Hours (Table) 04/19/19 11:00 Blood Culture - Preliminary Blood No Growth after 48 hours Assessment and Plan (1) Total bilirubin, elevated Narrative/Plan: 48-year-old with history of Hilario's esophagus on home omeprazole therapy and hypertension who presented to the hospital with complaints of fever, weakness, sore throat as well as an episode of abdominal pain which lasted a few hours in duration. Patient had isolated elevation in his bilirubin at 3.5 with other liver enzymes in the normal range as well as ultrasound findings of early cholecystitis, gallstone, sludge and a dilated CBD. Acute viral hepatitis panel testing was negative with normalization of bilirubin today. MRI of the abdomen is still pending. Current Visit: Yes Status: Acute Code(s): R17 - UNSPECIFIED JAUNDICE SNOMED Code(s): 560328018861130 (2) Cholecystitis Current Visit: Yes Status: Acute Code(s): K81.9 - CHOLECYSTITIS, UNSPECIFIED SNOMED Code(s): 48587095 (3) Epigastric pain Current Visit: Yes Status: Acute Code(s): R10.13 - EPIGASTRIC PAIN SNOMED Code(s): 02192370 Plan: Supportive care Surgical service and infectious disease service consult that Currently on ceftriaxone, deferred to ID recommendations We'll repeat CMP Viral hepatitis panel negative MRCP ordered to rule out choledocholithiasis, scheduled for tomorrow Continue to monitor symptomatically Case discussed at length with the patient and his , if choledocholithiasis is noted on MR imaging will proceed with ERCP with timing to be determined, otherwise we'll continue antibiotic therapy at this time as patient is being evaluated by other subspecialties Thank you for allowing us to participate in the care of the patient we will continue to follow
--- NOTE | 2019-04-21 19:48 | PN ---
PROGRESS NOTE DATE OF SERVICE: 04/21/2019. REASON FOR FOLLOW UP: Fever with a question of viral syndrome versus cholecystitis. INTERVAL HISTORY: The patient is currently afebrile. The patient is feeling slightly better. Denies having any chest pain or cough. Some postnasal drip, though. No abdominal pain or any diarrhea. PHYSICAL EXAMINATION: Blood pressure 156/87, pulse 83, temperature 98.8. He is 95% on room air. General description is a middle-aged male lying in bed in no distress. RESPIRATORY SYSTEM: Unlabored breathing. Clear to auscultation anteriorly. HEART: S1, S2. Regular rate and rhythm. ABDOMEN: Soft, no tenderness. LABS: Hemoglobin is 12.8, white count 4.2, BUN of 10, creatinine 0.7, creatinine 0.79. CMV serologies currently negative. Hepatitis serology negative. DIAGNOSTIC IMPRESSION AND PLAN: Patient admitted to the hospital with generalized weakness and no energy with the question of possible viral syndrome and did have abnormal ultrasound with question of cholecystitis. The patient currently on Rocephin while the serologies are currently pending. Continue supportive care. MMODL / IJN: [id number] /
[2019-04-21] MEDS: MELATONIN 5 MG TABLET PO SCH (21:11)
[2019-04-22] MEDS: ACETAMINOPHEN ORAL SUSP (PEDS) 3,840 MG/120 ML BOTTLE PO PRN ×2 (04:17→20:48)
[2019-04-22] MEDS: SODIUM CHLORIDE 0.9% 1,000 ML IV SCH ×2 (04:30→15:21)
--- NOTE | 2019-04-22 05:12 | PN ---
PROGRESS NOTE DATE OF SERVICE: 04/21/2019 PRESENTING COMPLAINT: Tired. INTERVAL HISTORY: This patient presented with febrile syndrome that included what appears to be myocarditis, myalgias, nephritis and also element of hepatitis. The patient doing much better today. Actually walking in the hallways. Achiness in the muscles greatly improved. There is a question about cholecystitis. The entire picture is not exactly compatible with the same. REVIEW OF SYSTEMS: Done for constitutional, cardiovascular, GI, pulmonary; relevant findings above. Patient is eating much better today. CURRENT MEDICATIONS: Current medications are reviewed that include IV ceftriaxone and IV fluid 75 mL an hour. PHYSICAL EXAMINATION: On examination, temperature 98.8, pulse 86, respiration 20, blood pressure 156/87, pulse ox 95% on room air. GENERAL APPEARANCE: Sitting up, appearing better. EYES: Pupils equal. Conjunctivae normal. NECK: JVD not raised. Mass not palpable. RESPIRATORY: Effort normal. LUNGS: Are clear. CARDIOVASCULAR: First and second sounds normal. No edema. ABDOMEN: Soft, nontender. Liver and spleen not palpable. PSYCHIATRY: Alert and oriented x3. Mood and affect is normal. The patient did walk in the hallway. INVESTIGATIONS: White count 4.9, hemoglobin 12.0, decreased lymphocytes. Potassium 3.6, BUN 10, creatinine 0.79. Urine random creatinine is 78.5. Urine random total protein is 51. The patient's CMV, acute hepatitis screen, influenza screen all negative. ASSESSMENT: 1. Syndrome of acute myocarditis, acute nephritis, myalgia, hyperbilirubinemia. Suspect underlying acute viral syndrome. 2. Troponin leak. Need to rule out underlying ischemia per Cardiology. 3. Gallstones, questionable whether this was likely acute cholecystitis. PLAN: I had a very lengthy talk with the patient. The patient is empirically on antibiotics, although viral workup has been negative till right now. Decision at this point is unclear if the patient should proceed with a cholecystectomy. We will await further input from Infectious Disease to see their opinion. The patient currently has no abdominal pain. No increase in LFTs. Continue with empirical antibiotics, IV fluids. Patient will be getting a stress test tomorrow. MMODL / IJN: [id number] /
[2019-04-22] MEDS ORDERED: AMINOPHYLLINE 500 MG/20 ML VIAL IV PRN (06:00)
[2019-04-22] MEDS ORDERED: CAFFEINE CITRATE 60 MG/3 ML VIAL IV PRN (06:00)
[2019-04-22] MEDS ORDERED: DIPYRIDAMOLE 70 MG in SODIUM CHLORIDE 0.9% 50 ML IV ONE (06:00)
[2019-04-22] MEDS: PANTOPRAZOLE SODIUM 40 MG GRANULE PKT PO SCH (06:40)
[2019-04-22 07:19] LABS: Basophils % (A) 0 %; Eosinophils # (A) 0.2 k/uL (0-0.7); Eosinophils % (A) 3 %; HCT 33.6 % (39.0-53.0); HGB 11.5 gm/dL (13.0-17.5); Lymphocytes # (A) 1.4 k/uL (1.0-4.8); Lymphocytes % (A) 21 %; MCH 29.5 pg (25.0-35.0); MCHC 34.3 g/dL (31.0-37.0); MCV 85.9 fL (80.0-100.0); Mean Platelet Volume 7.2; Monocytes # (A) 0.3 k/uL (0-1.0); Monocytes % (A) 4 %; Neutrophils # (A) 4.5 k/uL (1.3-7.7); Neutrophils % (A) 70 %; Platelet Count 230 k/uL (150-450); Poikilocytosis Slight; RBC 3.91 m/uL (4.30-5.90); RDW 14.1 % (11.5-15.5); WBC 6.5 k/uL (3.8-10.6)
[2019-04-22 07:30] LABS: ALT 41 U/L (21-72); AST 45 U/L (17-59); African American GFR (CKD) >90 (>60 ml/min/1.73 sqM); Albumin 2.6 g/dL (3.5-5.0); Alkaline Phosphatase 95 U/L (38-126); Anion Gap 6 mmol/L; Blood Urea Nitrogen 12 mg/dL (9-20); Calcium 7.7 mg/dL (8.4-10.2); Carbon Dioxide 26 mmol/L (22-30); Chloride 108 mmol/L (98-107); Glucose 99 mg/dL (74-99); Potassium 3.4 mmol/L (3.5-5.1); Sodium 140 mmol/L (137-145); Total Bilirubin 0.6 mg/dL (0.2-1.3); Total Protein 5.2 g/dL (6.3-8.2)
[2019-04-22 10:13] LABS: Anti-DNA, DS unit <1.0 IU/mL; DNA Double-Stranded NEGATIVE (NEGATIVE)
[2019-04-22 10:13] LABS: EBV-EA (IgG) <0.2 AI; EBV-EBNA(IgG) >8.0 AI; EBV-VCA (IgG) 1.1 AI
--- NOTE | 2019-04-22 10:37 | P.STRESS ---
- Stress Test Note Stress Test Results/Findings: Exam Performed: NM stress persantine cardiolite Exam Date: 04/22/19 Reason for Exam: Chest Pain Height: 6 ft 4 in Weight: 120.202 kg Protocol: Persantine Stage: na Duration of Exercise: na Resting Heart Rate: 86 Resting Blood Pressure: 131/90 Maximum Achieved Heart Rate: 93 Maximum Achieved Blood Pressure: 131/90 85% PMHR: 145 100% PMHR: 171 METS: na Technologist Comment: Stress Test Results/Findings: Baseline heart rate 86 beats a minute, Baseline blood pressure 131/50 mmHg Baseline twelve-lead ECG is abnormal with T-wave inversions in inferior leads, [address] depression with T-wave inversions V4-V6 In addition there is a 0.[address] elevation in V1, [address] elevation in V2 and V3 Patient received Persantine infusion per protocol Heart rate and blood pressure remains stable No new abnormalities noted. Nuclear portion of the stress test will be reported separately
--- NOTE | 2019-04-22 11:02 | NM ---
EXAMINATION TYPE: NM stress persantine cardiolit DATE OF EXAM: 04/22/2019 COMPARISON: 11/01/2012 HISTORY: Abnormal troponins. Preop. Hypertension. Family history of coronary artery disease TECHNIQUE: After the intravenous administration of 9.98 mCi Tc 99m Sestamibi - Cardiolite resting SP ECT images acquired 45 minutes post injection. The patient received 70 mg Persantine, 26.4 mCi Tc 99m Sestamibi - Stress images obtained 41 minutes post injection FINDINGS: Review of stress and rest SPECT images demonstrates no a single segment mild perfusion defect in the apical lateral segment wall in the distribution of the circumflex coronary artery. Gated analysis sh ows normal wall motion with an estimated left ventricular ejection fraction of 56 %. TID is within no rmal limits calculated at 1.10 IMPRESSION: Single segment mild reversible perfusion defect in the apical lateral segment in the dist ribution of the circumflex coronary artery. No other perfusion abnormalities are seen.
[2019-04-22] MEDS: LISINOPRIL 5 MG TAB PO SCH (11:48)
[2019-04-22] MEDS: ENOXAPARIN 40 MG/0.4 ML SYRINGE SQ SCH (11:48)
--- NOTE | 2019-04-22 12:22 | P.PN ---
Subjective Progress Note Date: 04/22/19 Principal diagnosis: Elevated liver enzymes Attempted to see the patient, however not in the room at stress test. Objective - Vital Signs Vital signs: Vital Signs Temp 98.9 F 04/22/19 12:00 Pulse 70 04/22/19 12:00 Resp 16 04/22/19 12:00 BP 136/89 04/22/19 12:00 Pulse Ox 96 04/22/19 12:00 Intake & Output 04/21/19 04/22/19 04/22/19 18:59 06:59 18:59 Intake Total 650 Output Total 1125 Balance -1125 650 Weight 123.1 kg 120.202 kg Intake: Oral 650 Output: Urine 1125 Other: # Voids 2 1 - Labs CBC & Chem 7: 04/22/19 06:39 04/22/19 06:39 Labs: Abnormal Lab Results - Last 24 Hours (Table) 04/20/19 04/21/19 04/22/19 Range/Units 19:02 17:00 06:39 RBC 3.91 L (4.30-5.90) m/uL Hgb 11.5 L (13.0-17.5) gm/dL Hct 33.6 L (39.0-53.0) % Potassium (3.5-5.1) mmol/L Chloride (98-107) mmol/L Calcium (8.4-10.2) mg/dL Total Protein (6.3-8.2) g/dL Albumin (3.5-5.0) g/dL U Random Total Protein 51 H (<12) mg/dL EBV Capsid Ag IgG Intrp POSITIVE H (NEGATIVE) EBV Nuc Ag IgG Interp POSITIVE H (NEGATIVE) 04/22/19 Range/Units 06:39 RBC (4.30-5.90) m/uL Hgb (13.0-17.5) gm/dL Hct (39.0-53.0) % Potassium 3.4 L (3.5-5.1) mmol/L Chloride 108 H (98-107) mmol/L Calcium 7.7 L (8.4-10.2) mg/dL Total Protein 5.2 L (6.3-8.2) g/dL Albumin 2.6 L (3.5-5.0) g/dL U Random Total Protein (<12) mg/dL EBV Capsid Ag IgG Intrp (NEGATIVE) EBV Nuc Ag IgG Interp (NEGATIVE) Microbiology - Last 24 Hours (Table) 04/19/19 11:00 Blood Culture - Preliminary Blood No Growth after 48 hours Assessment and Plan (1) Total bilirubin, elevated Current Visit: Yes Status: Acute Code(s): R17 - UNSPECIFIED JAUNDICE SNOMED Code(s): 879209949673060 (2) Cholecystitis Current Visit: Yes Status: Acute Code(s): K81.9 - CHOLECYSTITIS, UNSPECIFIED SNOMED Code(s): 39366067 (3) Epigastric pain Current Visit: Yes Status: Acute Code(s): R10.13 - EPIGASTRIC PAIN SNOMED Code(s): 16593279
[2019-04-22 12:30] LABS: Complement C3 68.6 mg/dL (80.0-207.0)
[2019-04-22] MEDS ORDERED: ASPIRIN 325 MG TAB PO STA (12:31)
[2019-04-22] MEDS ORDERED: ATORVASTATIN 80 MG TAB PO STA (12:31)
[2019-04-22] MEDS ORDERED: ALPRAZolam 0.25 MG TAB PO PRN (12:31)
[2019-04-22] MEDS ORDERED: NITROGLYCERIN SL TABS 0.4 MG TAB SUBLINGUAL PRN (12:31)
[2019-04-22] MEDS ORDERED: ALPRAZolam 0.5 MG TAB PO PRN (12:31)
[2019-04-22] MEDS ORDERED: SODIUM CHLORIDE 0.9% 1,000 ML in EMPTY BAG 1 BAG IV ONE (12:31)
--- NOTE | 2019-04-22 12:55 | PN ---
PROGRESS NOTE DATE OF SERVICE: 04/22/2019 REASON FOR FOLLOWUP: Fever, possible viral syndrome versus cholecystitis. INTERVAL HISTORY: The patient did have a fever of 100.8 this morning. The patient has been afebrile since then. The patient is currently breathing comfortably. Denies having any chest pain or shortness of breath or cough. No nausea, vomiting, or any diarrhea. PHYSICAL EXAMINATION: Blood pressure 136/81 with a pulse of 73, temperature 98.9, he is 96% on room air. General description is a middle-aged male, lying in bed in no distress. RESPIRATORY SYSTEM: Unlabored breathing, clear to auscultation anteriorly. HEART: S1, S2. Regular rate and rhythm. ABDOMEN: Soft, no tenderness. EXTREMITIES: No edema of the feet. LABS: CMV serology negative. EBV is positive with IgG not IgM. The MR cholangiopancreatography is currently pending. DIAGNOSTIC IMPRESSION AND PLAN: Patient admitted to the hospital with a fever with question of possible viral syndrome versus cholecystitis. The patient is currently covered with Rocephin. remains to be negative. Continue supportive care. MMODL / IJN: [id number] /
--- NOTE | 2019-04-22 13:19 | MR ---
EXAMINATION TYPE: MR MRCP DATE OF EXAM: 04/22/2019 COMPARISON: Ultrasound 04/29/2019 HISTORY: MRCP rule out choledocholithiasis Standard multiplanar, multisequence MRI departmental protocol Multiplanar, multisequence images were obtained. FINDINGS: Exam is nondiagnostic based on motion artifact. There does appear to be evidence of a small left pleural effusion and bibasilar bilateral lower lobe infiltrate. The gallbladder appears prominent and there is a gallstone in the visualized portion of the gallbladd er. Gallbladder wall also a thickened correlate for cholecystitis. Assessment of the common bile duct is markedly limited. No obvious stone is seen although given the limitation exam not excluded. IMPRESSION: 1. Nondiagnostic assessment of the common bile duct due to artifact. 2. Cholelithiasis correlate for cholecystitis. 2. Bilateral lower lobe atelectasis or infiltrate with tiny left pleural effusion.
--- NOTE | 2019-04-22 13:33 | P.PN ---
Subjective Progress Note Date: 04/22/19 CHIEF COMPLAINT: abdominal pain HISTORY OF PRESENT ILLNESS: Patient seen and examined at the bedside today. Patient reports minimal right upper quadrant tenderness. Denies nausea or vomiting. Patient underwent stress test today. He reports he is having a heart c ath tomorrow. MRCP completed today reveals nondiagnostic assessment of the common bile duct due to artifact. Cholelithiasis correlate for cholecystitis. Bilateral lower lobe atelectasis or infiltrate with tiny left pleural effusion. PHYSICAL EXAM: VITAL SIGNS: Reviewed. GENERAL: Well-developed in no acute distress. HEENT: No sclera icterus. Extraocular movements grossly intact. Moist buccal mucosa. Head is atraumatic, normocephalic. ABDOMEN: Soft. Nondistended. Mild tenderness to right upper quadrant. NEUROLOGIC: Alert and oriented. Cranial nerves II through XII grossly intact. ASSESSMENT: 1. Acute cholecystitis PLAN: Patient to undergo laparoscopic cholecystectomy when medically stable. Patient scheduled heart cath tomorrow per cardiology. Nurse practitioner note has been reviewed by physician. Signing provider agrees with the documented findings, assessment, and plan of care. Objective - Vital Signs Vital signs: Vital Signs Temp 98.9 F 04/22/19 12:00 Pulse 70 04/22/19 12:00 Resp 16 04/22/19 12:00 BP 136/89 04/22/19 12:00 Pulse Ox 96 04/22/19 12:00 Intake & Output 04/21/19 04/22/19 04/22/19 18:59 06:59 18:59 Intake Total 650 Output Total 1125 Balance -1125 650 Weight 123.1 kg 120.202 kg Intake: Oral 650 Output: Urine 1125 Other: # Voids 2 1 - Labs CBC & Chem 7: 04/22/19 06:39 04/22/19 06:39 Labs: Abnormal Lab Results - Last 24 Hours (Table) 04/20/19 04/21/19 04/21/19 Range/Units 19:02 05:55 17:00 RBC (4.30-5.90) m/uL Hgb (13.0-17.5) gm/dL Hct (39.0-53.0) % Potassium (3.5-5.1) mmol/L Chloride (98-107) mmol/L Calcium (8.4-10.2) mg/dL Total Protein (6.3-8.2) g/dL Albumin (3.5-5.0) g/dL U Random Total Protein 51 H (<12) mg/dL Complement C3 68.6 L (80.0-207.0) mg/dL Complement C4 2.1 L (10.0-53.0) mg/dL EBV Capsid Ag IgG Intrp POSITIVE H (NEGATIVE) EBV Nuc Ag IgG Interp POSITIVE H (NEGATIVE) 04/22/19 04/22/19 Range/Units 06:39 06:39 RBC 3.91 L (4.30-5.90) m/uL Hgb 11.5 L (13.0-17.5) gm/dL Hct 33.6 L (39.0-53.0) % Potassium 3.4 L (3.5-5.1) mmol/L Chloride 108 H (98-107) mmol/L Calcium 7.7 L (8.4-10.2) mg/dL Total Protein 5.2 L (6.3-8.2) g/dL Albumin 2.6 L (3.5-5.0) g/dL U Random Total Protein (<12) mg/dL Complement C3 (80.0-207.0) mg/dL Complement C4 (10.0-53.0) mg/dL EBV Capsid Ag IgG Intrp (NEGATIVE) EBV Nuc Ag IgG Interp (NEGATIVE) Microbiology - Last 24 Hours (Table) 04/19/19 11:00 Blood Culture - Preliminary Blood No Growth after 72 hours
--- NOTE | 2019-04-22 14:29 | P.PN ---
Subjective Progress Note Date: 04/22/19 This is a 48-year-old gentleman with past medical history significant for hypertension, hiatal hernia, Hilario's esophagus, history of pericarditis at the age of 17, occasional EtOH use, patient presents to the hospital with symptoms of fevers, generalized body aches, sore throat, abdominal discomfort and epigastric discomfort. According to the patient prior to the symptoms starting he had just eaten a meal, it initially started as mid epigastric discomfort and then he described it as a severe pressure sensation in his abdomen, it lasted for multiple hours. Subsequent to that he had 3-4 episodes of vomiting. Ultrasound of the abdomen showed early acute cholecystitis and dilated common bile duct, cholelithiasis, biliary sludge and upper limits of normal size of the gallbladder. Soft tissue neck CT did not reveal any abnormality. EKG showed a sinus tachycardia with nonspecific ST-T wave changes. Blood pressure on arrival 105/70 with a heart rate of 116, 95% on room air. White blood cell count is normal, hemoglobin 14.2, platelet count 206. Sodium 136 on arrival 137 this morning, potassium 3.7 on arrival 4.4 this morning. BUN 14 creatinine 0.9. Lactic acid 2.3. Troponin 0.21, 0.09, 0.08. Patient has been seen by surgical services, plan is for laparoscopic cholecystectomy once cleared. Cardiology consultation was requested because of abnormal troponins. 04/22/2019 Patient underwent a Lexiscan stress test today which revealed mild reversible perfusion defect in the apical lateral segment in the distribution of the circumflex artery. For this reason Dr. Blanco spoke with the patient and his advising that he undergo a cardiac catheterization, the risks and the benefits were explained to them in detail, he is willing to proceed. This will be performed tomorrow by Dr. Blanco. Objective - Vital Signs Vital signs: Vital Signs Temp 98.9 F 04/22/19 12:00 Pulse 70 04/22/19 12:00 Resp 16 04/22/19 12:00 BP 136/89 04/22/19 12:00 Pulse Ox 96 04/22/19 12:00 Intake & Output 04/21/19 04/22/19 04/22/19 18:59 06:59 18:59 Intake Total 650 Output Total 1125 Balance -1125 650 Weight 123.1 kg 120.202 kg Intake: Oral 650 Output: Urine 1125 Other: # Voids 2 1 - Exam PHYSICAL EXAMINATION: GENERAL: 88-year-old gentleman in no acute distress at the time of my examination HEENT: Head is atraumatic, normocephalic. Pupils equal, round. Sclera anicteric. Conjunctiva are clear. Mucous membranes of the mouth are moist. Neck is supple. There is no elevated jugular venous pressure. No carotid bruit is heard. HEART EXAMINATION: [Heart S1, S2 normal. No murmur or gallop heard.] CHEST EXAMINATION:[ Lungs are clear to auscultation and precussion. No chest wall tenderness is noted on palpation or with deep breathing.] ABDOMEN: [ Soft, mild generalized tenderness . Mild midepigastric tenderness. Bowel sounds are heard. No organomegaly noted]. EXTREMITIES:[ 2+ peripheral pulses with no evidence of peripheral edema and no calf tenderness noted]. NEUROLOGIC [patient is awake, alert and oriented 3 .] . - Labs CBC & Chem 7: 04/22/19 06:39 04/22/19 06:39 Labs: Abnormal Lab Results - Last 24 Hours (Table) 04/20/19 04/21/19 04/21/19 Range/Units 19:02 05:55 17:00 RBC (4.30-5.90) m/uL Hgb (13.0-17.5) gm/dL Hct (39.0-53.0) % Potassium (3.5-5.1) mmol/L Chloride (98-107) mmol/L Calcium (8.4-10.2) mg/dL Total Protein (6.3-8.2) g/dL Albumin (3.5-5.0) g/dL U Random Total Protein 51 H (<12) mg/dL Complement C3 68.6 L (80.0-207.0) mg/dL Complement C4 2.1 L (10.0-53.0) mg/dL EBV Capsid Ag IgG Intrp POSITIVE H (NEGATIVE) EBV Nuc Ag IgG Interp POSITIVE H (NEGATIVE) 04/22/19 04/22/19 Range/Units 06:39 06:39 RBC 3.91 L (4.30-5.90) m/uL Hgb 11.5 L (13.0-17.5) gm/dL Hct 33.6 L (39.0-53.0) % Potassium 3.4 L (3.5-5.1) mmol/L Chloride 108 H (98-107) mmol/L Calcium 7.7 L (8.4-10.2) mg/dL Total Protein 5.2 L (6.3-8.2) g/dL Albumin 2.6 L (3.5-5.0) g/dL U Random Total Protein (<12) mg/dL Complement C3 (80.0-207.0) mg/dL Complement C4 (10.0-53.0) mg/dL EBV Capsid Ag IgG Intrp (NEGATIVE) EBV Nuc Ag IgG Interp (NEGATIVE) Microbiology - Last 24 Hours (Table) 04/19/19 11:00 Blood Culture - Preliminary Blood No Growth after 72 hours Assessment and Plan Plan: Assessment and plan #1 symptoms of generalized body aches with associated fever at home. Elevated lactic acid on admission. #2 epigastric and abdominal discomfort, elevated total bilirubin and evidence of cholecystitis #3 history of Hilario's esophagus #4 abnormal troponin, likely secondary to infection #5.Gerd Plan Persantine Cardiolite stress test positive for reversible ischemia. Patient has been advised to undergo cardiac catheterization, the risks and benefits explained to him in detail, this will be performed tomorrow by Dr. Blanco. DNP note has been reviewed, I agree with a documented findings and plan of care. Patient was seen and examined.
[2019-04-22] MEDS ORDERED: POTASSIUM CHLORIDE ER 20 MEQ TAB.ER PO STA (14:37)
[2019-04-22] MEDS ORDERED: POTASSIUM BICARBONATE/CIT AC 20 MEQ TABLET.EFF PO ONE (15:16)
[2019-04-22] MEDS: MELATONIN 5 MG TABLET PO SCH (15:24)
--- NOTE | 2019-04-23 05:55 | PN ---
PROGRESS NOTE DATE OF SERVICE: 04/22/2019 PRESENTING COMPLAINT: Tired. INTERVAL HISTORY: Patient presented with febrile syndrome, appears to be viral, which it seems to include myocarditis, myalgias, nephritis. Overall feeling much better today. Did actually walk even further. The patient's troponins have been positive and stress test was ordered. The patient also has gallstones, but this is doubted to be an acute cholecystitis event. Overall feeling much better. REVIEW OF SYSTEMS: Done for constitutional, cardiovascular, GI, pulmonary; relevant findings as above. CURRENT MEDICATIONS: Current medications are reviewed that include IV ceftriaxone, IV fluids. PHYSICAL EXAMINATION: On examination, T-max 100.3, pulse 91, respiration 16, blood pressure 128/83 pulse ox 97% on room air. GENERAL APPEARANCE: Sitting up, awake. EYES: Pupils equal. Conjunctivae normal. NECK: JVD not raised. Mass not palpable. RESPIRATORY: Effort normal. LUNGS: Are clear. CARDIOVASCULAR: First and second sounds normal. No edema. ABDOMEN: Soft, nontender. Liver and spleen not palpable. PSYCHIATRY: Alert and oriented x3. Mood and affect normal. INVESTIGATIONS: White count 6.5, hemoglobin 11.5. Potassium 3.4. Albumin 2.6. Cynthia-Foley virus IgG positive, IgM was negative. Complement C3 and C4 were both low. Cholangiopancreatography MRI showed gallstones. Nuclear stress test showed some reversibility at the apex. ASSESSMENT: 1. Syndrome of acute myocarditis, acute nephritis, myalgia, hyperbilirubinemia suspect underlying viral syndrome possibly Cynthia-Foley virus, though would have expected IgM to be positive. 2. Troponin leak with a positive stress test. Cardiology is considering a cardiac catheterization. 3. Gallstones, doubt acute cholecystitis. May need to be addressed further down the road. 4. Hypoalbuminemia as an acute phase reactant. PLAN: Again had a very lengthy talk with the patient and his . Discussed the clinical picture. Clinically patient continues to do better. Also discussed with Dr. Leos to hold off any cholecystectomy at the present time. Continue empirical antibiotics per Dr. Vaughan. Will follow. MMODL / IJN: [id number] /
[2019-04-23] MEDS ORDERED: ASPIRIN 325 MG TAB PO ONE (06:00)
[2019-04-23] MEDS ORDERED: SODIUM CHLORIDE 0.9% 1,000 ML in EMPTY BAG 1 BAG IV ONE (06:00)
[2019-04-23] MEDS ORDERED: ATORVASTATIN 80 MG TAB PO ONE (06:00)
[2019-04-23 06:05] LABS: Glucose,Whole Blood 94 mg/dL (75-99)
[2019-04-23] MEDS: SODIUM CHLORIDE 0.9% 1,000 ML IV SCH ×4 (06:06→23:11)
[2019-04-23] MEDS: PANTOPRAZOLE SODIUM 40 MG GRANULE PKT PO SCH (06:14)
[2019-04-23] MEDS: LISINOPRIL 5 MG TAB PO SCH (06:14)
[2019-04-23] MEDS: ENOXAPARIN 40 MG/0.4 ML SYRINGE SQ SCH (07:42)
[2019-04-23] MEDS ORDERED: IV FLUID CONTINUATION 1,000 ML IV ONE (10:13)
[2019-04-23] MEDS ORDERED: fentaNYL (PF) 50 MCG/ML 2 ML AMP IV ONE (10:37)
[2019-04-23] MEDS ORDERED: MIDAZOLAM (PF) 2 MG/2 ML VIAL IV ONE (10:37)
[2019-04-23] MEDS ORDERED: LIDOCAINE 1% INJ 10MG/ML (20 ML MDV) SQ ONE (10:40)
[2019-04-23] MEDS ORDERED: VERAPAMIL SYRINGE (5 MG/10 ML) INTRAARTER ONE (10:42)
[2019-04-23] MEDS ORDERED: HEPARIN SODIUM 1,000 UN/ML (10ML VL) IV ONE (10:43)
[2019-04-23] MEDS ORDERED: IOPAMIDOL-370 125ML BTL INJ ONE (10:51)
[2019-04-23] MEDS ORDERED: RX INFO: IV CONTRAST WAS GIVEN 1 EACH MISC MISCELLANE PRN (11:04)
--- NOTE | 2019-04-23 12:21 | P.PN ---
Subjective Progress Note Date: 04/23/19 CHIEF COMPLAINT: abdominal pain HISTORY OF PRESENT ILLNESS: Patient seen and examined at the bedside today. Patient denies abdominal pain. Denies nausea or vomiting. Patient is scheduled for heart cath today. MRCP completed yesterday reveals nondiagnostic assessment of the common bile duct due to artifact. Cholelithiasis correlate for cholecystitis. Bilateral lower lobe atelectasis or infiltrate with tiny left pleural effusion. PHYSICAL EXAM: VITAL SIGNS: Reviewed. GENERAL: Well-developed in no acute distress. HEENT: No sclera icterus. Extraocular movements grossly intact. Moist buccal mucosa. Head is atraumatic, normocephalic. ABDOMEN: Soft. Nondistended. Nontender NEUROLOGIC: Alert and oriented. Cranial nerves II through XII grossly intact. ASSESSMENT: 1. Cholelithiasis with possible acute cholecystitis PLAN: Patient to undergo cardiac cath today Recommend laparoscopic cholecystectomy in the future when patient is medically stable Nurse practitioner note has been reviewed by physician. Signing provider agrees with the documented findings, assessment, and plan of care. Objective - Vital Signs Vital signs: Vital Signs Temp 98.3 F 04/23/19 11:04 Pulse 77 04/23/19 12:16 Resp 16 04/23/19 12:16 BP 133/90 04/23/19 12:16 Pulse Ox 99 04/23/19 12:16 Intake & Output 04/22/19 04/23/19 04/23/19 18:59 06:59 18:59 Intake Total 1485 500 460 Output Total 1400 Balance 85 500 460 Weight 120.202 kg 124.7 kg Intake: IV 50 Intake, IV Titration 525 300 410 Amount Sodium Chloride 0.9% 1, 525 300 000 ml @ 75 mls/hr IV . [id number] [facility] Rx#:[id number] Sodium Chloride 0.9% 1, 360 000 ml In Empty Bag 1 bag @ 1 ML/KG/HR 120.202 mls /hr IV .[id number] [facility] Rx#: [id number] cefTRIAXone 2 gm In 50 Sodium Chloride 0.9% 50 ml @ 100 mls/hr IVPB Q24HR [facility] Rx#:[id number] Oral 960 200 Output: Urine 1400 Other: # Voids 2 2 1 - Labs CBC & Chem 7: 04/22/19 06:39 04/22/19 06:39 Labs: Abnormal Lab Results - Last 24 Hours (Table) 04/21/19 Range/Units 05:55 Complement C3 68.6 L (80.0-207.0) mg/dL Complement C4 2.1 L (10.0-53.0) mg/dL Microbiology - Last 24 Hours (Table) 04/19/19 11:00 Blood Culture - Preliminary Blood No Growth after 72 hours
[2019-04-23 12:43] LABS: Appearance,Urine Clear (Clear); Bilirubin,Urine Negative (Negative); Blood,Urine Negative (Negative); Color,Urine Yellow; Glucose,Urine (UA) Negative (Negative); Ketones,Urine Negative (Negative); Leukocyte Esterase,Urine Negative (Negative); Nitrite,Urine Negative (Negative); PH, Urine 7.5 (5.0-8.0); Protein,Urine Negative (Negative)
--- NOTE | 2019-04-23 13:06 | P.PN ---
Subjective Progress Note Date: 04/23/19 Principal diagnosis: Elevated liver enzymes Status post heart catheterization this morning. Liver function tests normalize yesterday. MRCP reported cholelithiasis no evidence of obvious biliary tree pathology, MRCP nondiagnostic assessment, bile duct secondary to artifact what could be seen given the limitation no obvious stone identified. Denies epigastric pain. Afebrile. No labs to review today. Objective - Vital Signs Vital signs: Vital Signs Temp 98.3 F 04/23/19 11:04 Pulse 80 04/23/19 12:49 Resp 16 04/23/19 12:49 BP 137/90 04/23/19 12:49 Pulse Ox 97 04/23/19 12:49 Intake & Output 04/22/19 04/23/19 04/23/19 18:59 06:59 18:59 Intake Total 1485 500 700 Output Total 1400 Balance 85 500 700 Weight 120.202 kg 124.7 kg Intake: IV 50 Intake, IV Titration 525 300 410 Amount Sodium Chloride 0.9% 1, 525 300 000 ml @ 75 mls/hr IV . [id number] [facility] Rx#:[id number] Sodium Chloride 0.9% 1, 360 000 ml In Empty Bag 1 bag @ 1 ML/KG/HR 120.202 mls /hr IV .Q8H20M [facility] Rx#: [id number] cefTRIAXone 2 gm In 50 Sodium Chloride 0.9% 50 ml @ 100 mls/hr IVPB Q24HR [facility] Rx#:[id number] Oral 960 200 240 Output: Urine 1400 Other: # Voids 2 2 1 - Exam General appearance: The patient is alert, oriented, in no acute distress. HET: Head is normocephalic and atraumatic. Pupils are equal and reactive. Oropharynx is clear without lesions. Neck: Supple without lymphadenopathy. Trachea midline. Heart: S1 S2. Regular rate and rhythm. Lungs: No crackles or wheezes are heard. Abdomen: Soft, nontender, nondistended with bowel sounds. No peritoneal signs. No palpable organomegaly or masses. - Labs CBC & Chem 7: 04/22/19 06:39 04/22/19 06:39 Labs: Microbiology - Last 24 Hours (Table) 04/19/19 11:00 Blood Culture - Preliminary Blood No Growth after 72 hours Assessment and Plan (1) Total bilirubin, elevated Current Visit: Yes Status: Acute Code(s): R17 - UNSPECIFIED JAUNDICE SNO MED Code(s): 472502146926422 (2) Cholelithiasis Current Visit: Yes Status: Acute Code(s): K80.20 - CALCULUS OF GALLBLADDER W/O CHOLECYSTITIS W/O OBSTRUCTION SNOMED Code(s): 698101852 (3) Epigastric pain Current Visit: Yes Status: Acute Code(s): R10.13 - EPIGASTRIC PAIN SNOMED Code(s): 73494929 Plan: LFTs normalize. MRCP report reviewed by Dr. Reardon inpatient ERCP not indicated at this time. General surgery filling. We'll follow as needed. Assessment and plan a care discussed with Dr. Reardon
[2019-04-23] MEDS ORDERED: POTASSIUM CHLORIDE ER 20 MEQ TAB.ER PO STA (13:43)
[2019-04-23 14:36] LABS: C-ANCA <1:20 Titer (<1:20); P-ANCA <1:20 Titer (<1:20)
--- NOTE | 2019-04-23 14:47 | PN ---
PROGRESS NOTE Patient was seen initially for concern for nephritis and his UA showed evidence of 2+ protein and trace blood. The proteinuria was fortified and it did not show significant proteinuria. Urine protein creatinine ratio was 0.6. The false serologies came back negative except for low complements. At this time, most of the workup for the patient has been negative. EBV virus IgG was positive, but IgM was negative. His MRI was nondiagnostic for possible cholecystitis. Overall, patient states he is feeling better. He has not had any further fevers. PHYSICAL EXAMINATION: On examination today, blood pressure was 133/90, heart rate of 72 per minute. He is afebrile. Examination of the heart S1, S2. Examination of the lungs, bilateral breath sounds are heard. Abdomen is soft, nontender. Exam of the lower extremities shows no evidence of edema [employer] exam is grossly intact. LABS: Show sodium 140, potassium 3.4, serum creatinine .85, hemoglobin 11.5 g/dL. ASSESSMENT: 1. Is mild proteinuria with underlying febrile illness with negative serologies and low complements. I will repeat another urinalysis. I doubt that the patient has any significant underlying nephritis at this time unless his repeat UA remains positive for hematuria and proteinuria. I have discussed with the patient that we may need to do a biopsy if his repeat urine shows underlying hematuria or proteinuria. Otherwise, we do not need to proceed with any aggressive measures. The 1 can see of nephrotic range proteinuria with any febrile illness. So far, all serologies are negative. The complement levels are low, however, it is in the 80s to underlying infection as well. 2. Hypokalemia secondary to decreased oral intake and where we will replace. 3. Febrile illness on workup so far negative. Most likely viral. Patient is maintained on antibiotics. He is being followed by ID as well. 4. Hypertension currently controlled plan it is a Hep-Lock IV and replace potassium. Repeat UA the. No further workup necessary if repeat UA is negative. In the 50s and patient is also advised to avoid use of any nonsteroidal anti-inflammatory agents down the road. .. MMODL / IJN: [id number] /
[2019-04-23 15:20] LABS: Basophils % (A) 0 %; Eosinophils # (A) 0.3 k/uL (0-0.7); Eosinophils % (A) 5 %; HCT 32.8 % (39.0-53.0); HGB 11.1 gm/dL (13.0-17.5); Lymphocytes # (A) 1.6 k/uL (1.0-4.8); Lymphocytes % (A) 24 %; MCH 28.7 pg (25.0-35.0); MCHC 33.8 g/dL (31.0-37.0); MCV 84.9 fL (80.0-100.0); Mean Platelet Volume 7.4; Monocytes # (A) 0.5 k/uL (0-1.0); Monocytes % (A) 8 %; Neutrophils % (A) 60 %; Platelet Count 257 k/uL (150-450); Poikilocytosis Slight; RBC 3.86 m/uL (4.30-5.90); RDW 14.5 % (11.5-15.5); WBC 6.6 k/uL (3.8-10.6)
[2019-04-23 15:32] LABS: ALT 62 U/L (21-72); AST 73 U/L (17-59); African American GFR (CKD) >90 (>60 ml/min/1.73 sqM); Albumin 2.4 g/dL (3.5-5.0); Alkaline Phosphatase 123 U/L (38-126); Anion Gap 5 mmol/L; Blood Urea Nitrogen 12 mg/dL (9-20); Calcium 7.6 mg/dL (8.4-10.2); Carbon Dioxide 25 mmol/L (22-30); Chloride 110 mmol/L (98-107); Glucose 95 mg/dL (74-99); Potassium 3.6 mmol/L (3.5-5.1); Sodium 140 mmol/L (137-145); Total Bilirubin 0.4 mg/dL (0.2-1.3)
[2019-04-23] MEDS ORDERED: POTASSIUM BICARBONATE/CIT AC 20 MEQ TABLET.EFF PO ONE (16:03)
--- NOTE | 2019-04-23 17:35 | P.CARDCATH ---
Date of Procedure: 04/23/19 Preoperative Diagnosis: Abnormal troponin and positive stress test Postoperative Diagnosis: Normal coronary arteries Procedure(s) Performed: Left heart catheterization without left ventriculography Description of Procedure: HISTORY: This is a 48-year-old gentleman was admitted to the hospital with chest pain and generalized body pains. His troponins were abnormal and a stress test was suggestive of ischemia in the left circumflex distribution. Patient is advised to have a cardiac catheterization for definitive diagnosis CONSENT:I have discussed the risks, benefits and alternative therapies for the above-mentioned procedure and for both sedation/analgesia as well as necessary blood product administration, if indicated, as they pertain to this patient. The patient has indicated understanding and acceptance of the risks and procedures discussed. PROCEDURE: Patient was brought to the lab in a fasting state. Patient was given some IV sedation. The right wrist is infiltrated with lidocaine and right radial artery was entered using Seldinger technique. A 6-Azerbaijani catheter was left in place and selective coronary arteriography was performed. Patient tolerated the procedure well. TR band was applied for hemostasis. No immediate complications were noted and patient was transferred to selective care in a stable condition Conscious Sedation: Versed 1mg Fentanyl 50 g Duration 17minutes HEMODYNAMICS: The aortic pressure was about 130/70. The left ventricular end- diastolic pressure was 20-24. There was no gradient across the aortic valve SELECTIVE CORONARY ARTERIOGRAPHY: LEFT MAIN: Almost nonexistent. Device into LAD and circumflex immediately THE LEFT ANTERIOR DESCENDING CORONARY ARTERY: This is a good caliber vessel which wraps around the apex. Gives rise to good-sized diagonal septal branches. The LAD and branches are free of occlusive disease THE LEFT CIRCUMFLEX AND IS CORONARY ARTERY: . This a good caliber and codominant vessel. Of any occlusive disease THE RIGHT CORONARY ARTERY: . Caliber vessel giving rise to PDA and PLV. Free of any occlusive disease LEFT VENTRICULOGRAPHY: . Not performed FINAL IMPRESSION: #1. Normal coronary arteries #2. Elevated end-diastolic pressure PLAN: Maximum medical therapy and this factor modification PROGNOSIS: Fair
--- NOTE | 2019-04-23 17:50 | PN ---
PROGRESS NOTE DATE OF SERVICE: 04/23/2019 REASON FOR FOLLOWUP: Fever; question of viral syndrome versus cholecystitis. INTERVAL HISTORY: The patient is currently afebrile. No fever has been recorded in the last few days. Last temperature was on 04/22 . The patient has been feeling better, has been breathing comfortably. Denies having any chest pain or shortness of breath or cough. No abdominal pain. No nausea, vomiting or diarrhea. PHYSICAL EXAMINATION: Blood pressure 124/82 with a pulse of 82, temperature 98. He is 94% on room air. General description is a middle-aged male lying in bed in no distress. RESPIRATORY SYSTEM: Unlabored breathing. Clear to auscultation anteriorly. HEART: S1, S2. Regular rate and rhythm. ABDOMEN: Soft. No tenderness. LABS: Hemoglobin is 11.1, white count 6.6, BUN of 12, creatinine 0.74. Blood cultures have been negative. serology has been negative. DIAGNOSTIC IMPRESSION AND PLAN: Patient admitted to hospital with generalized weakness, no energy, aches and pains, low- grade fever, concern about possible viral syndrome. However, serology has been negative. He also had an abdominal ultrasound which showed possible cholecystitis, for which the patient is currently being monitored by Surgery, on Rocephin. May transition to a short course of oral Ceftin on discharge. Continue with supportive care. RADHAL / ESTELAN: [id number] /
[2019-04-23] MEDS: ACETAMINOPHEN ORAL SUSP (PEDS) 3,840 MG/120 ML BOTTLE PO PRN (21:05)
[2019-04-23] MEDS: MELATONIN 5 MG TABLET PO SCH (21:07)
[2019-04-23 21:50] VITALS: RESP 18
--- NOTE | 2019-04-24 06:29 | PN ---
PROGRESS NOTE DATE OF SERVICE: 04/23/2019 PRESENTING COMPLAINT: Tired. INTERVAL HISTORY: Patient presents with viral syndrome felt to be viral including myocarditis, myalgias, nephritis. Continues to feel better. Did undergo cardiac catheterization. Coronaries normal. Also has gallstones. No abdominal pain. No nausea, vomiting. REVIEW OF SYSTEMS: Done for constitutional, cardiovascular, GI, pulmonary; relevant findings as above. CURRENT MEDICATIONS: Reviewed that include IV ceftriaxone. PHYSICAL EXAMINATION: VITAL SIGNS: Temperature 98.3. Pulse 71, respirations 16, blood pressure 136/92, pulse ox 97% on room air. GENERAL APPEARANCE: Sitting up awake. EYES: Pupils equal. Conjunctivae normal. NECK: JVD not raised. Mass not palpable. RESPIRATORY: Effort normal. LUNGS are clear. CARDIOVASCULAR: First and second sounds normal. No edema. ABDOMEN: Soft, nontender. Liver and spleen not palpable. PSYCHIATRY: Alert and oriented x3. Mood and affect normal. INVESTIGATIONS: White count 6.6, hemoglobin 11.1, potassium 3.6, albumin 2.4. UA negative. ASSESSMENT: 1. Acute severe viral syndrome causing acute myocarditis, acute nephritis, myalgias with clinical improvement. 2. Troponin leak probably from myocarditis. Cardiac catheterization showing normal coronaries. 3. Gallstones. No need for urgent intervention at this present time, can be followed down the road. 4. Hypoalbuminemia as an acute phase reactant. PLAN: I had a very lengthy talk with the patient again today. Many questions were answered. There is no emergent need for gallstones to be taken out. This can be followed clinically and also discussed with Dr. Vaughan from Infectious Disease. We both agreed to give another short course of Ceftin. The patient encouraged to ambulate. If continues to do well, hopefully can be discharged tomorrow. MMODL / IJN: [id number] /
[2019-04-24] MEDS: PANTOPRAZOLE SODIUM 40 MG GRANULE PKT PO SCH (09:03)
[2019-04-24] MEDS: LISINOPRIL 5 MG TAB PO SCH (09:03)
[2019-04-24] MEDS: ENOXAPARIN 40 MG/0.4 ML SYRINGE SQ SCH (09:03)
[2019-04-24] MEDS: SODIUM CHLORIDE 0.9% 1,000 ML IV SCH (11:10)
[2019-04-24 11:20] VITALS: BP 133/88; PULSE 78; TEMP 98.8
--- NOTE | 2019-04-24 12:17 | PN ---
PROGRESS NOTE DATE OF SERVICE: 04/24/2019 REASON FOR FOLLOWUP: Fever and a question of cholecystitis. INTERVAL HISTORY: The patient overall fever pattern has improved. No fever has been recorded in the last few days. Last temperature was 100.3 on 04/22. The patient overall is feeling better, has more energy. Denies having any chest pain, shortness of breath. No abdominal pain. No nausea, vomiting, or any diarrhea. PHYSICAL EXAMINATION: Blood pressure 133/88 with a pulse of 78, temperature 98.8. He is 93% on room air. General description is a middle aged male, up in the bed in no distress. RESPIRATORY SYSTEM: Unlabored breathing, clear to auscultation anteriorly. HEART: S1, S2. Regular rate and rhythm. ABDOMEN: Soft, no tenderness. LABS: While serology has been negative, white count is 6.6. Cultures remain negative. DIAGNOSTIC IMPRESSION AND PLAN: Patient admitted to the hospital with fever with concern for possible viral syndrome. There has been possible cholecystitis. Overall improvement on Rocephin and will give a short course of oral Ceftin and close outpatient followup. Continue supportive care. MMODL / IJN: [id number] /
--- NOTE | 2019-04-24 13:45 | P.PN ---
Progress Note - Text Progress Note Date: 04/24/19 The patient feels better. His cardiac cath was normal yesterday. On exam is lesser stable. His evidence soft. It. Patient will follow-up next week for his acute on chronic cholecystitis.
--- NOTE | 2019-04-25 15:16 | DS ---
DISCHARGE SUMMARY DATE OF ADMISSION: 04/19/2019 DATE OF DISCHARGE: 04/24/2019 FINAL DIAGNOSES: 1. Acute severe viral syndrome, exact cause unknown causing acute myocarditis, acute nephritis, myalgia. 2. Troponin leak due to acute myocarditis. 3. Gallstones. 4. Hypoalbuminemia as an acute phase reactant. CONSULTATION: Dr. Leos from General surgery, Dr. Vaughan from Infectious Disease; Dr. Reardon from GI, Dr. Blanco from Cardiology/Dr. Hyde. HOSPITAL COURSE: This is a pleasant gentleman who presented with multiple systemic symptoms including some headache, fever, chills, some abdominal pain in different sequence. He did present to the ER, felt to be a viral syndrome, was sent home. Symptoms started to get worse. The patient started developing myalgia, presented to the hospital. The patient's white count remained normal. Hemoglobin was 11.1. The patient's UA was negative. Total complement did drop down. Albumin did drop to 2.6, felt to be acute phase reactant. The patient's complement C3-C4 were also decreased. Otherwise, patient's ROLY screen, C ANCA, p-ANCA was negative. Double-stranded DNA antibody was negative. The patient's [place]thia [place] virus IgG antibodies were positive, not IgM. Hepatitis screen was negative. Influenza screen was negative. TSH was normal. The patient's LDL was 52. The patient did have hyperbilirubinemia initially that did settle down. The patient did have a positive troponin, felt to be from myocarditis. The patient did have a stress test that showed some reversibility. Cardiac catheterization was carried out that showed normal coronaries. The patient did have a cholangiopancreatic MRI that showed gallstones. The patient initially had some abdominal pain at home, but the clinical picture was not compatible with acute cholecystitis in entirety. Hence, at this point we were reluctant to see if this was an indication. This was discussed at length with the patient on several occasions. Also was discussed with ID. This was also discussed with Dr. Leos. The patient also was having severe myalgia when he first came in, but gradually improved by the time of discharge. He is really doing well, up and about, just tired but overall up and about in the hallway, tolerating a diet. Questions were discussed, answered. PHYSICAL EXAMINATION: Temperature 98.8, pulse 78, respiratory 18, blood pressure 133/88, pulse ox 93% on room air. On exam lungs are clear. Cardiovascular, first and second sounds normal. White count 4.9 hemoglobin, hemoglobin 12, potassium 3.6. BUN and creatinine normal. DISCHARGE MEDICATIONS: Omeprazole 20 mg a day, amlodipine, benazepril 5/10, 1 capsule p.o. daily; Ceftin 500 mg p.o. b.i.d. for 10 tablets. FOLLOWUP: Follow up with Dr. Ravinder Bryant in [place] on 04/29/2019. Follow up with Dr. Blanco on 05/02/2019. Follow up with Dr. Vaughan on 05/07/2019. Follow up with Dr. Leos on 05/06/2019. DIET: Low-fat diet. The patient to return to work on 05/01/2019. MMODL / IJN: [id number] /
== END 2019-04-24 13:54 | disposition home or self-care (01) | DRG 286 ==
LOC: EC 10:21 → 3SCARD 16:21
PROVIDERS: ADMIT Hospitalist; ATTEND Hospitalist
PROC: B2111ZZ Fluoroscopy of Multiple Coronary Arteries using Low Osmolar Contrast (ICD-10-PCS; 2019-04-23)
PROC: 4A023N7 Measurement of Cardiac Sampling and Pressure, Left Heart, Percutaneous Approach (ICD-10-PCS; principal; 2019-04-23 10:00)
DX: I40.8 Other acute myocarditis (principal); N00.9 Acute nephritic syndrome with unspecified morphologic changes; J98.11 Atelectasis; K80.12 Calculus of gallbladder with acute and chronic cholecystitis without obstruction; B34.9 Viral infection, unspecified; E87.6 Hypokalemia; I10 Essential (primary) hypertension; K21.9 Gastro-esophageal reflux disease without esophagitis; J02.9 Acute pharyngitis, unspecified; K22.70 Barrett's esophagus without dysplasia; K82.8 Other specified diseases of gallbladder; K44.9 Diaphragmatic hernia without obstruction or gangrene; K64.8 Other hemorrhoids; R09.82 Postnasal drip; R74.8 Abnormal levels of other serum enzymes; R77.9 Abnormality of plasma protein, unspecified; H91.90 Unspecified hearing loss, unspecified ear; Z79.899 Other long term (current) drug therapy; Z86.010 Personal history of colon polyps; Z80.0 Family history of malignant neoplasm of digestive organs
CPT/HCPCS: 36415; 70491; 74181; 76705; 78452; 80053; 80061; 80074; 81001; 81003; 82550; 82570; 83605; 83690; 84156; 84443; 84484; 85025; 86038; 86160; 86162; 86225; 86255; 86308; 86334; 86644; 86645; 86663; 86664; 86665; 87040; 87502; 93005; 93017; 93306; 93458; 96361; 96365; 96375; 99285

== ENCOUNTER 2021-07-05 06:09 | Emergency (ER) | payer BC ==
[2021-07-05 06:19] VITALS: RESP 18; TEMP 97.7
[2021-07-05] MEDS ORDERED: SODIUM CHLORIDE 0.9% 500 ML 500 ML IV STA (06:24)
[2021-07-05] MEDS ORDERED: SODIUM CHLORIDE 0.9% 1,000 ML IV STA (06:24)
[2021-07-05] MEDS ORDERED: HYDROmorphone 0.5 MG/0.5 ML SYRINGE IVP STA ×2 (06:31→08:19)
[2021-07-05] MEDS ORDERED: KETOROLAC 15 MG/ML 1 ML VIAL IVP STA ×2 (06:31→08:19)
[2021-07-05] MEDS ORDERED: ONDANSETRON 4 MG/2 ML VIAL IVP STA (06:31)
--- NOTE | 2021-07-05 06:42 | ED ---
Abdominal Pain HPI - General Chief Complaint: Abdominal Pain Stated Complaint: Flank Pain Time Seen by Provider: 07/05/21 06:23 Source: patient, RN notes reviewed Mode of arrival: ambulatory Limitations: no limitations - History of Present Illness Initial Comments: This 50-year-old male presents emergency Department chief complaint severe right flank pain. Patient states it woke him up. Nothing really makes it feel better or worse at this time. He does feel nauseated has had some emesis. Denies chest pain shortness of breath no fevers chills no dysuria no hematuria known diarrhea constipation. Patient states that he was told he had a kidney stone at one point but states never passed anything. Patient denies any prior abdominal surgeries - Related Data Home Medications Medication Instructions Recorded Confirmed Omeprazole [PriLOSEC] 20 mg PO DAILY 05/19/15 07/05/21 amLODIPine BESYLATE/BENAZEPRIL 1 cap PO DAILY 05/19/15 07/05/21 [Amlodipine-Benazepril 5-10 mg] Tadalafil [Cialis] 20 mg PO DAILY PRN 07/05/21 07/05/21 Previous Rx's Medication Instructions Recorded Ketorolac [Toradol] 10 mg PO Q8HR #15 tab 07/05/21 Ondansetron Odt [Zofran Odt] 4 mg PO Q8HR PRN #10 tab 07/05/21 Tamsulosin [Flomax] 0.4 mg PO DAILY #7 cap 07/05/21 Allergies Allergy/AdvReac Type Severity Reaction Status Date / Time No Known Allergies Allergy Verified 07/05/21 07:12 Review of Systems ROS Statement: Those systems with pertinent positive or pertinent negative responses have been documented in the HPI. ROS Other: All systems not noted in ROS Statement are negative. Past Medical History Past Medical History: GERD/Reflux, Hypertension Additional Past Medical History / Comment(s): HX OF PERICARDITIS (17 YRS OLD)., BLOOD IN STOOL., SLIGHT HEARING LOSS. 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 Past Anesthesia/Blood Transfusion Reactions: No Reported Reaction Past Psychological History: No Psychological Hx Reported Smoking Status: Never smoker Past Alcohol Use History: Occasional Past Drug Use History: None Reported - Past Family History Sister(s) Family Medical History: Cancer Additional Family Medical History / Comment(s): pancreatic General Exam Limitations: no limitations General appearance: alert, in no apparent distress Head exam: Present: atraumatic, normocephalic, normal inspection Eye exam: Present: normal appearance, PERRL, EOMI. Absent: scleral icterus, conjunctival injection, periorbital swelling ENT exam: Present: normal exam, normal oropharynx, mucous membranes moist Neck exam: Present: normal inspection, full ROM. Absent: tenderness, meningismus, lymphadenopathy Respiratory exam: Present: normal lung sounds bilaterally. Absent: respiratory distress, wheezes, rales, rhonchi, stridor Cardiovascular Exam: Present: regular rate, normal rhythm, normal heart sounds. Absent: systolic murmur, diastolic murmur, rubs, gallop, clicks GI/Abdominal exam: Present: soft, normal bowel sounds. Absent: distended, tenderness, guarding, rebound, rigid Back exam: Absent: CVA tenderness (R), CVA tenderness (L) Neurological exam: Present: alert Skin exam: Present: warm, dry, intact, normal color. Absent: rash Course Vital Signs 07/05/21 07/05/21 06:15 07:32 Temperature 97.7 F Pulse Rate 63 79 Respiratory 18 18 Rate Blood Pressure 179/126 137/94 O2 Sat by Pulse 98 97 Oximetry Medical Decision Making - Medical Decision Making Patient CT shows evidence of 2 mm ureteral calculi. Patient is improved after IV pain meds. Patient will be discharged with pain medication, Flomax, antiemetics with follow-up with urology. - Lab Data Result diagrams: 07/05/21 06:32 07/05/21 06:32 Lab Results 07/05/21 07/05/21 07/05/21 Range/Units 06:32 06:32 06:32 WBC 9.0 (3.8-10.6) k/uL RBC 5.42 (4.30-5.90) m/uL Hgb 15.8 (13.0-17.5) gm/dL Hct 47.3 (39.0-53.0) % MCV 87.3 (80.0-100.0) fL MCH 29.1 (25.0-35.0) pg MCHC 33.3 (31.0-37.0) g/dL RDW 14.4 (11.5-15.5) % Plt Count 317 (150-450) k/uL MPV 7.3 Neutrophils % 65 % Lymphocytes % 24 % Monocytes % 5 % Eosinophils % 4 % Basophils % 1 % Neutrophils # 5.9 (1.3-7.7) k/uL Lymphocytes # 2.1 (1.0-4.8) k/uL Monocytes # 0.5 (0-1.0) k/uL Eosinophils # 0.4 (0-0.7) k/uL Basophils # 0.0 (0-0.2) k/uL Sodium 136 L (137-145) mmol/L Potassium 4.6 (3.5-5.1) mmol/L Chloride 104 (98-107) mmol/L Carbon Dioxide 20 L (22-30) mmol/L Anion Gap 12 mmol/L BUN 16 (9-20) mg/dL Creatinine 0.87 (0.66-1.25) mg/dL Est GFR (CKD-EPI)AfAm >90 (>60 ml/min/1.73 sqM) Est GFR (CKD-EPI)NonAf >90 (>60 ml/min/1.73 sqM) Glucose 120 H (74-99) mg/dL Plasma Lactic Acid Jimy (0.7-2.0) mmol/L Calcium 9.3 (8.4-10.2) mg/dL Total Bilirubin 0.4 (0.2-1.3) mg/dL AST 25 (17-59) U/L ALT 19 (4-49) U/L Alkaline Phosphatase 63 (38-126) U/L Total Protein 7.7 (6.3-8.2) g/dL Albumin 4.6 (3.5-5.0) g/dL Lipase 237 (23-300) U/L Urine Color Light Yellow Urine Appearance Clear (Clear) Urine pH 5.0 (5.0-8.0) Ur Specific Hallock 1.007 (1.001-1.035) Urine Protein Negative (Negative) Urine Glucose (UA) Negative (Negative) Urine Ketones Negative (Negative) Urine Blood Large H (Negative) Urine Nitrite Negative (Negative) Urine Bilirubin Negative (Negative) Urine Urobilinogen <2.0 (<2.0) mg/dL Ur Leukocyte Esterase Negative (Negative) Urine RBC 65 H (0-5) /hpf Urine Bacteria Rare H (None) /hpf Urine Mucus Rare H (None) /hpf 07/05/21 Range/Units 06:32 WBC (3.8-10.6) k/uL RBC (4.30-5.90) m/uL Hgb (13.0-17.5) gm/dL Hct (39.0-53.0) % MCV (80.0-100.0) fL MCH (25.0-35.0) pg MCHC (31.0-37.0) g/dL RDW (11.5-15.5) % Plt Count (150-450) k/uL MPV Neutrophils % % Lymphocytes % % Monocytes % % Eosinophils % % Basophils % % Neutrophils # (1.3-7.7) k/uL Lymphocytes # (1.0-4.8) k/uL Monocytes # (0-1.0) k/uL Eosinophils # (0-0.7) k/uL Basophils # (0-0.2) k/uL Sodium (137-145) mmol/L Potassium (3.5-5.1) mmol/L Chloride (98-107) mmol/L Carbon Dioxide (22-30) mmol/L Anion Gap mmol/L BUN (9-20) mg/dL Creatinine (0.66-1.25) mg/dL Est GFR (CKD-EPI)AfAm (>60 ml/min/1.73 sqM) Est GFR (CKD-EPI)NonAf (>60 ml/min/1.73 sqM) Glucose (74-99) mg/dL Plasma Lactic Acid Jimy 1.9 (0.7-2.0) mmol/L Calcium (8.4-10.2) mg/dL Total Bilirubin (0.2-1.3) mg/dL AST (17-59) U/L ALT (4-49) U/L Alkaline Phosphatase (38-126) U/L Total Protein (6.3-8.2) g/dL Albumin (3.5-5.0) g/dL Lipase (23-300) U/L Urine Color Urine Appearance (Clear) Urine pH (5.0-8.0) Ur Specific Hallock (1.001-1.035) Urine Protein (Negative) Urine Glucose (UA) (Negative) Urine Ketones (Negative) Urine Blood (Negative) Urine Nitrite (Negative) Urine Bilirubin (Negative) Urine Urobilinogen (<2.0) mg/dL Ur Leukocyte Esterase (Negative) Urine RBC (0-5) /hpf Urine Bacteria (None) /hpf Urine Mucus (None) /hpf Disposition Clinical Impression: Right ureteral calculus Disposition: HOME SELF-CARE Condition: Stable Instructions (If sedation given, give patient instructions): Kidney Stones (ED) Additional Instructions: Please return to the Emergency Department if symptoms worsen or any other concerns. Prescriptions: Tamsulosin [Flomax] 0.4 mg PO DAILY #7 cap Ketorolac [Toradol] 10 mg PO Q8HR #15 tab Ondansetron Odt [Zofran Odt] 4 mg PO Q8HR PRN #10 tab PRN Reason: Nausea Is patient prescribed a controlled substance at d/c from ED?: No Referrals: Ravinder Bryant MD [Primary Care Provider] - 1-2 days Tra Powell MD [STAFF PHYSICIAN] - 1-2 days Time of Disposition: 08:21
[2021-07-05 06:46] LABS: Basophils % (A) 1 %; Eosinophils # (A) 0.4 k/uL (0-0.7); Eosinophils % (A) 4 %; HCT 47.3 % (39.0-53.0); HGB 15.8 gm/dL (13.0-17.5); Lymphocytes # (A) 2.1 k/uL (1.0-4.8); Lymphocytes % (A) 24 %; MCH 29.1 pg (25.0-35.0); MCHC 33.3 g/dL (31.0-37.0); MCV 87.3 fL (80.0-100.0); Mean Platelet Volume 7.3; Monocytes # (A) 0.5 k/uL (0-1.0); Monocytes % (A) 5 %; Neutrophils # (A) 5.9 k/uL (1.3-7.7); Neutrophils % (A) 65 %; Platelet Count 317 k/uL (150-450); RBC 5.42 m/uL (4.30-5.90); RDW 14.4 % (11.5-15.5)
[2021-07-05 07:25] LABS: ALT 19 U/L (4-49); AST 25 U/L (17-59); African American GFR (CKD) >90 (>60 ml/min/1.73 sqM); Albumin 4.6 g/dL (3.5-5.0); Alkaline Phosphatase 63 U/L (38-126); Anion Gap 12 mmol/L; Blood Urea Nitrogen 16 mg/dL (9-20); Calcium 9.3 mg/dL (8.4-10.2); Carbon Dioxide 20 mmol/L (22-30); Chloride 104 mmol/L (98-107); Glucose 120 mg/dL (74-99); Lipase 237 U/L (23-300); Non-African American GFR(CKD) >90 (>60 ml/min/1.73 sqM); Potassium 4.6 mmol/L (3.5-5.1); Sodium 136 mmol/L (137-145); Total Bilirubin 0.4 mg/dL (0.2-1.3); Total Protein 7.7 g/dL (6.3-8.2)
[2021-07-05 07:33] VITALS: BP 137/94
--- NOTE | 2021-07-05 07:34 | CT ---
EXAMINATION TYPE: CT abdomen pelvis wo con DATE OF EXAM: 07/05/2021 COMPARISON: Or first of L5-S1 HISTORY: Right flank pain with nausea. Negative gross hematuria. History of renal stone [address] DLP: 1138.4 mGycm Examination of the solid and hollow viscera is limited given the lack of contrast. FINDINGS: LUNG BASES: No evidence for nodule. No evidence for infiltrate. LIVER/GB: The gallbladder is unremarkable. No space-occupying hepatic lesion. PANCREAS: No pancreatic mass identified. No inflammatory process seen. SPLEEN: No evidence for splenomegaly. No intrasplenic lesions seen. ADRENALS: No adrenal nodules identified. No evidence for thickening. KIDNEYS: 2 mm obstructing calculus just distal to the right UPJ resulting in mild right-sided hydrone phrosis. No additional calculi seen. Left kidney is unremarkable. BOWEL: Appendix has a normal appearance. No evidence of bowel obstruction. No inflammatory process. Lymph nodes: No evidence for adenopathy greater than 1 cm. Abdominal aorta: Atheromatous changes seen. No evidence for aneurysm. Genital organs: Moderate prostate calcifications. Other: No significant abnormality. IMPRESSION: 2 mm obstructing calculus just distal to the right UPJ resulting in mild right-sided hydronephrosis.
[2021-07-05] MEDS ORDERED: TAMSULOSIN 0.4 MG CAP.ER.24H PO STA (07:36)
[2021-07-05 08:02] LABS: Appearance,Urine Clear (Clear); Bacteria,Urine Rare /hpf; Bilirubin,Urine Negative (Negative); Blood,Urine Large (Negative); Color,Urine Light Yellow; Glucose,Urine (UA) Negative (Negative); Ketones,Urine Negative (Negative); Leukocyte Esterase,Urine Negative (Negative); Mucus,Urine Rare /hpf; Nitrite,Urine Negative (Negative); Protein,Urine Negative (Negative); RBC,Urine 65 /hpf (0-5); Specific Gravity,Urine 1.007 (1.001-1.035); Urobilinogen,Urine <2.0 mg/dL (<2.0)
[2021-07-05 08:57] VITALS: PULSE 77
== END 2021-07-05 08:42 | disposition home or self-care (01) ==
LOC: EC 06:09
DX: N20.1 Calculus of ureter (principal); K21.9 Gastro-esophageal reflux disease without esophagitis; I10 Essential (primary) hypertension; Z90.89 Acquired absence of other organs
CPT/HCPCS: 99284; 96374; 96375 ×2; 96376 ×2; 96361; 36415; 80053; 83605; 83690; 85025; 81001; 74176; J2405; J1885; J1170

== ENCOUNTER → 2023-10-03 | Outpatient (CLI) | payer BC ==
--- NOTE | 2023-10-03 22:12 | CT ---
EXAMINATION TYPE: CT right knee - [facility] Protocol DATE OF EXAM: 10/03/2023 COMPARISON: None HISTORY: 52-year-old male in to 5.561 RT knee PRITESH protocol CT DLP: 705 mGycm. Automated exposure control for dose reduction was used. TECHNIQUE: CT through the pelvis, right knee, and both ankles for surgical planning purposes. Coronal and sagittal reconstructions performed. FINDINGS: Mild degenerative spurring of both hips. Prostatomegaly of 5.0 cm wide with central calcifications. Mild to moderate circumferential bladder w all thickening may reflect chronic bladder wall hypertrophy or cystitis. Clinically correlate. There is large knee joint effusion. Suggestion of large loose body in the medial gutter measuring up to 3.5 cm. There is tricompartmental degenerative change, severe in the medial patellofemoral compart ments. There may be some lateral subluxation at the joint. Ankles: No gross abnormality. IMPRESSION: 1. Tricompartmental osteoarthrosis right knee, severe in the medial and patellofemoral compartments. 2. Large joint effusion along with a large 3.5 cm loose body in the medial gutter of the suprapatell ar pouch. 3. Prostatomegaly and 5.0 cm wide. Thickened bladder wall could be due to chronic wall hypertrophy f rom underlying BPH. Correlate with patient's symptoms and PSA values. Correlate to exclude cystitis.
== END | disposition home or self-care (01) ==
LOC: RADCTMAIN 11:12
PROVIDERS: ATTEND Orthopaedic Surgery
DX: M17.11 Unilateral primary osteoarthritis, right knee (principal); M25.461 Effusion, right knee; M23.41 Loose body in knee, right knee; N40.0 Benign prostatic hyperplasia without lower urinary tract symptoms

== ENCOUNTER 2023-11-25 16:05 | Emergency (ER) | payer BC ==
--- NOTE | 2023-11-25 16:52 | ED ---
General Adult HPI - General Chief complaint: Fever Stated complaint: Post-Op Complications Time Seen by Provider: 11/25/23 16:42 Source: patient Mode of arrival: EMS Limitations: no limitations - History of Present Illness Initial comments: Patient presents to the ED with his for evaluation. Patient states that he has had a fever, sore throat, cough and congestion for the past 2 days or so. Patient states that he had right knee replacement surgery performed 4 days ago. Patient states that he last took any antipyretic medication (Tylenol) about 5 hours ago today. Patient denies increased right knee pain. Patient denies redness around his right knee surgical wound or drainage noted to the dressing over his right knee surgical wound. Patient denies headache, neck pain or stiffness, otalgia, dysphagia, chest pain, dyspnea, palpitations, dizziness, abdominal pain, nausea/vomiting/diarrhea, dysuria or urinary symptoms, calf swelling or pain, or any other symptoms or complaints. - Related Data Home Medications Medication Instructions Recorded Confirmed Omeprazole [PriLOSEC] 20 mg PO DAILY 05/19/15 07/05/21 amLODIPine BESYLATE/BENAZEPRIL 1 cap PO DAILY 05/19/15 07/05/21 [Amlodipine-Benazepril 5-10 mg] tadalafiL [Cialis] 20 mg PO DAILY PRN 07/05/21 07/05/21 Previous Rx's Medication Instructions Recorded Ketorolac [Toradol] 10 mg PO Q8HR #15 tab 07/05/21 Ondansetron Odt [Zofran Odt] 4 mg PO Q8HR PRN #10 tab 07/05/21 Tamsulosin [Flomax] 0.4 mg PO DAILY #7 cap 07/05/21 Allergies Allergy/AdvReac Type Severity Reaction Status Date / Time No Known Allergies Allergy Verified 07/05/21 07:12 Review of Systems ROS Statement: Those systems with pertinent positive or pertinent negative responses have been documented in the HPI. ROS Other: All systems not noted in ROS Statement are negative. Past Medical History Past Medical History: GERD/Reflux, Hypertension Additional Past Medical History / Comment(s): HX OF PERICARDITIS (17 YRS OLD)., BLOOD IN STOOL., SLIGHT HEARING LOSS. 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 Past Anesthesia/Blood Transfusion Reactions: No Reported Reaction Past Psychological History: No Psychological Hx Reported Smoking Status: Never smoker Past Alcohol Use History: Occasional Past Drug Use History: None Reported - Past Family History Sister(s) Family Medical History: Cancer Additional Family Medical History / Comment(s): pancreatic General Exam Limitations: no limitations General appearance: alert, in no apparent distress Eye exam: Present: normal appearance ENT exam: Present: normal oropharynx, mucous membranes moist, TM's normal bila terally Neck exam: Present: other (No nuchal rigidity or meningeal signs are present on exam). Absent: tenderness, meningismus Respiratory exam: Present: normal lung sounds bilaterally. Absent: respiratory distress, wheezes, rales, rhonchi, stridor Cardiovascular Exam: Present: regular rate, normal rhythm, normal heart sounds, other (Normal radial pulses bilaterally) GI/Abdominal exam: Present: soft. Absent: distended, tenderness, guarding Extremities exam: Present: other (Negative Homans sign bilaterally; no erythema or tenderness is noted around the patient's anterior right knee surgical wound; no drainage is noted to the patient's right knee surgical wound dressing). Absent: pedal edema, calf tenderness Back exam: Absent: CVA tenderness (R), CVA tenderness (L) Neurological exam: Present: alert, oriented X3 Psychiatric exam: Present: normal affect Skin exam: Present: warm, dry, normal color Course Vital Signs 11/25/23 11/25/23 16:46 19:39 Temperature 100.6 F H 100.5 F H Pulse Rate 99 Respiratory 18 18 Rate Blood Pressure 108/76 O2 Sat by Pulse 94 L Oximetry - Reevaluation(s) Reevaluation #1: 11/25/23 22:31 Patient denies development of any new symptoms while in the ED. Patient remains alert and breathing comfortably. Patient and are aware the patient's test results, and they both feel comfortable with the patient being discharged home at this time. Patient was counseled about fever control and upper respiratory infections. He was clearly explained return and follow-up instructions, and he was instructed to follow up closely with his primary care provider, as well as his orthopedic surgeon. Will discharge patient home with his at this time. Medical Decision Making - Medical Decision Making Was pt. sent in by a medical professional or institution (, MAGGIE, MARKETING EFFECTIVENESS MANAGER, urgent care, hospital, or [facility]...) When possible be specific @ -No Did you speak to anyone other than the patient for history (EMS, parent, family, police, friend...)? What history was obtained from this source @ -No Did you review nursing and triage notes (agree or disagree)? Why? @ -I reviewed and agree with nursing and triage notes Were old charts reviewed (outside hosp., previous admission, EMS record, old EKG, old radiological studies, urgent care reports/EKG's, [facility] records)? Report findings @ -No old charts were reviewed Differential Diagnosis (chest pain, altered mental status, abdominal pain women, abdominal pain men, vaginal bleeding, weakness, fever, dyspnea, syncope, headache, dizziness, GI bleed, back pain, seizure, CVA, palpatations, mental health, musculoskeletal)? @ -Differential Fever: Pneumonia, viral URI, bronchitis, endocarditis, pharyngitis, sinusitis, peritonsillar abscess, retropharyngeal abscess UTI, pyelonephritis, wound infection, knee joint infection sepsis, viral illness, this is not meant to be an all-inclusive list. EKG interpreted by me (3pts min.). @ -None done X-rays interpreted by me (1pt min.). @ -Chest x-ray was reviewed myself and shows no acute abnormality. I agree with the radiologist's interpretation as above. CT interpreted by me (1pt min.). @ -None done U/S interpreted by me (1pt. min.). @ -None done What testing was considered but not performed or refused? (CT, X-rays, U/S, labs)? Why? @ -None What meds were considered but not given or refused? Why? @ -None Did you discuss the management of the patient with other professionals (professionals i.e. MAGGIE Hector, MARKETING EFFECTIVENESS MANAGER, lab, RT, psych nurse, family welfare social work professor, science tutor, teacher, air intelligence officer, case preparer and liner)? Give summary @ -No Was smoking cessation discussed for >3mins.? @ -No Was critical care preformed (if so, how long)? @ -No Were there social determinants of health that impacted care today? How? (Homelessness, low income, unemployed, alcoholism, drug addiction, transportation, low edu. Level, literacy, decrease access to med. care, senior living, rehab)? @ -No Was there de-escalation of care discussed even if they declined (Discuss DNR or withdrawal of care, Hospice)? DNR status @ -No What co-morbidities impacted this encounter? (DM, HTN, Smoking, COPD, CAD, Cancer, CVA, ARF, Chemo, Hep., AIDS, mental health diagnosis, sleep apnea, morbid obesity)? @ -None Was patient admitted / discharged? Hospital course, mention meds given and route, prescriptions, significant lab abnormalities, going to OR and other pertinent info. @ -Patient's WBC count and lactate level are both minimally elevated. The rest patient's labs are fairly unremarkable. Patient's chest x-ray does not show findings of pneumonia. Patient's UA is not suggestive of UTI. Patient's viral studies and rapid strep test are negative. Patient has no abdominal tenderness on exam. Patient has no erythema around or drainage from his right knee surgical wound. Patient reports having a cough, congestion, sore throat and fever for the past couple of days. I suspect that the patient's fever/symptoms are likely due to a viral upper respiratory infection. Blood cultures have been obtained. Will discharge patient home at this time. Strict return instructions were given. Patient feels comfortable with this plan. Undiagnosed new problem with uncertain prognosis? @ -No Drug Therapy requiring intensive monitoring for toxicity (Heparin, Nitro, I nsulin, Cardizem)? @ -No Were any procedures done? @ -No Diagnosis/symptom? @ -Upper respiratory infection and acute febrile illness Acute, or Chronic, or Acute on Chronic? @ -Acute Uncomplicated (without systemic symptoms) or Complicated (systemic symptoms)? @ -default Side effects of treatment? @ -No Exacerbation, Progression, or Severe Exacerbation? @ -No Poses a threat to life or bodily function? How? (Chest pain, USA, SD, pneumonia, PE, COPD, DKA, ARF, appy, cholecystitis, CVA, Diverticulitis, Homicidal, Suicidal, threat to staff... and all critical care pts) @ -No - Lab Data Result diagrams: 11/25/23 17:53 11/25/23 17:53 Lab Results 01/13/24 01/13/24 01/13/24 Range/Units 17:53 17:53 17:53 WBC 11.0 H (3.8-10.6) k/uL RBC 4.31 (4.30-5.90) m/uL Hgb 13.2 (13.0-17.5) gm/dL Hct 37.2 L (39.0-53.0) % MCV 86.2 (80.0-100.0) fL MCH 30.6 (25.0-35.0) pg MCHC 35.4 (31.0-37.0) g/dL RDW 12.7 (11.5-15.5) % Plt Count 218 (150-450) k/uL MPV 8.1 Neutrophils % 84 % Lymphocytes % 11 % Monocytes % 3 % Eosinophils % 1 % Basophils % 0 % Neutrophils # 9.3 H (1.3-7.7) k/uL Lymphocytes # 1.2 (1.0-4.8) k/uL Monocytes # 0.3 (0-1.0) k/uL Eosinophils # 0.1 (0-0.7) k/uL Basophils # 0.0 (0-0.2) k/uL Sodium 134 L (137-145) mmol/L Potassium 4.8 (3.5-5.1) mmol/L Chloride 99 (98-107) mmol/L Carbon Dioxide 20 L (22-30) mmol/L Anion Gap 15 mmol/L BUN 12 (9-20) mg/dL Creatinine 0.78 (0.66-1.25) mg/dL Est GFR (CKD-EPI)AfAm >90 (>60 ml/min/1.73 sqM) Est GFR (CKD-EPI)NonAf >90 (>60 ml/min/1.73 sqM) Glucose 111 H (74-99) mg/dL Lactic Ac Sepsis Rflx Plasma Lactic Acid Jimy 2.6 H* (0.7-2.0) mmol/L Calcium 8.5 (8.4-10.2) mg/dL Total Bilirubin 2.1 H (0.2-1.3) mg/dL AST 57 (17-59) U/L ALT 57 H (4-49) U/L Alkaline Phosphatase 76 (38-126) U/L Total Protein 7.1 (6.3-8.2) g/dL Albumin 3.5 (3.5-5.0) g/dL Urine Color Urine Appearance (Clear) Urine pH (5.0-8.0) Ur Specific [place] (1.001-1.035) Urine Protein (Negative) Urine Glucose (UA) (Negative) Urine Ketones (Negative) Urine Blood (Negative) Urine Nitrite (Negative) Urine Bilirubin (Negative) Urine Urobilinogen (<2.0) mg/dL Ur Leukocyte Esterase (Negative) Urine RBC (0-5) /hpf Urine WBC (0-5) /hpf Urine Mucus (None) /hpf Influenza Type A (PCR) (Not Detectd) Influenza Type B (PCR) (Not Detectd) RSV (PCR) (Not Detectd) SARS-CoV-2 (PCR) (Not Detectd) Group A Strep (PCR) (Not Detectd) 11/25/23 11/25/23 11/25/23 Range/Units 17:53 17:53 19:33 WBC (3.8-10.6) k/uL RBC (4.30-5.90) m/uL Hgb (13.0-17.5) gm/dL Hct (39.0-53.0) % MCV (80.0-100.0) fL MCH (25.0-35.0) pg MCHC (31.0-37.0) g/dL RDW (11.5-15.5) % Plt Count (150-450) k/uL MPV Neutrophils % % Lymphocytes % % Monocytes % % Eosinophils % % Basophils % % Neutrophils # (1.3-7.7) k/uL Lymphocytes # (1.0-4.8) k/uL Monocytes # (0-1.0) k/uL Eosinophils # (0-0.7) k/uL Basophils # (0-0.2) k/uL Sodium (137-145) mmol/L Potassium (3.5-5.1) mmol/L Chloride (98-107) mmol/L Carbon Dioxide (22-30) mmol/L Anion Gap mmol/L BUN (9-20) mg/dL Creatinine (0.66-1.25) mg/dL Est GFR (CKD-EPI)AfAm (>60 ml/min/1.73 sqM) Est GFR (CKD-EPI)NonAf (>60 ml/min/1.73 sqM) Glucose (74-99) mg/dL Lactic Ac Sepsis Rflx Y Plasma Lactic Acid Jimy (0.7-2.0) mmol/L Calcium (8.4-10.2) mg/dL Total Bilirubin (0.2-1.3) mg/dL AST (17-59) U/L ALT (4-49) U/L Alkaline Phosphatase (38-126) U/L Total Protein (6.3-8.2) g/dL Albumin (3.5-5.0) g/dL Urine Color Yellow Urine Appearance Clear (Clear) Urine pH 6.0 (5.0-8.0) Ur Specific [place] 1.027 (1.001-1.035) Urine Protein 1+ H (Negative) Urine Glucose (UA) Negative (Negative) Urine Ketones 1+ H (Negative) Urine Blood Negative (Negative) Urine Nitrite Negative (Negative) Urine Bilirubin 1+ H (Negative) Urine Urobilinogen 2.0 (<2.0) mg/dL Ur Leukocyte Esterase Negative (Negative) Urine RBC <1 (0-5) /hpf Urine WBC 2 (0-5) /hpf Urine Mucus Few H (None) /hpf Influenza Type A (PCR) Not Detected (Not Detectd) Influenza Type B (PCR) Not Detected (Not Detectd) RSV (PCR) Not Detected (Not Detectd) SARS-CoV-2 (PCR) Not Detected (Not Detectd) Group A Strep (PCR) (Not Detectd) 11/25/23 Range/Units 19:45 WBC (3.8-10.6) k/uL RBC (4.30-5.90) m/uL Hgb (13.0-17.5) gm/dL Hct (39.0-53.0) % MCV (80.0-100.0) fL MCH (25.0-35.0) pg MCHC (31.0-37.0) g/dL RDW (11.5-15.5) % Plt Count (150-450) k/uL MPV Neutrophils % % Lymphocytes % % Monocytes % % Eosinophils % % Basophils % % Neutrophils # (1.3-7.7) k/uL Lymphocytes # (1.0-4.8) k/uL Monocytes # (0-1.0) k/uL Eosinophils # (0-0.7) k/uL Basophils # (0-0.2) k/uL Sodium (137-145) mmol/L Potassium (3.5-5.1) mmol/L Chloride (98-107) mmol/L Carbon Dioxide (22-30) mmol/L Anion Gap mmol/L BUN (9-20) mg/dL Creatinine (0.66-1.25) mg/dL Est GFR (CKD-EPI)AfAm (>60 ml/min/1.73 sqM) Est GFR (CKD-EPI)NonAf (>60 ml/min/1.73 sqM) Glucose (74-99) mg/dL Lactic Ac Sepsis Rflx Plasma Lactic Acid Jimy (0.7-2.0) mmol/L Calcium (8.4-10.2) mg/dL Total Bilirubin (0.2-1.3) mg/dL AST (17-59) U/L ALT (4-49) U/L Alkaline Phosphatase (38-126) U/L Total Protein (6.3-8.2) g/dL Albumin (3.5-5.0) g/dL Urine Color Urine Appearance (Clear) Urine pH (5.0-8.0) Ur Specific [place] (1.001-1.035) Urine Protein (Negative) Urine Glucose (UA) (Negative) Urine Ketones (Negative) Urine Blood (Negative) Urine Nitrite (Negative) Urine Bilirubin (Negative) Urine Urobilinogen (<2.0) mg/dL Ur Leukocyte Esterase (Negative) Urine RBC (0-5) /hpf Urine WBC (0-5) /hpf Urine Mucus (None) /hpf Influenza Type A (PCR) (Not Detectd) Influenza Type B (PCR) (Not Detectd) RSV (PCR) (Not Detectd) SARS-CoV-2 (PCR) (Not Detectd) Group A Strep (PCR) NOT DETECTED (Not Detectd) - Radiology Data Chest x-ray: No acute pulmonary process. Disposition Clinical Impression: Acute febrile illness, Upper respiratory infection Disposition: HOME SELF-CARE Condition: Stable Instructions (If sedation given, give patient instructions): Fever in Adults (ED), Upper Respiratory Infection (ED) Additional Instructions: Return to the ER immediately should you develop drainage from your right knee wound, redness around your right knee wound, worsening pain your right knee, shortness of breath, feeling dizzy or faint, or new or worsening symptoms. Follow up closely with your primary care provider, as well as your orthopedic surgeon. Is patient prescribed a controlled substance at d/c from ED?: No Referrals: Anna Solitario MD [Primary Care Provider] - 1-2 days Harman Hicks MD [Medical Doctor] - 1-2 days Time of Disposition: 22:44
[2023-11-25] MEDS ORDERED: ACETAMINOPHEN TAB 500 MG TAB PO STA (16:59)
[2023-11-25 17:11] VITALS: RESP 18
[2023-11-25] MEDS ORDERED: HYDROmorphone 0.5 MG/0.5 ML SYRINGE IVP STA ×2 (18:45→20:33)
[2023-11-25 19:03] LABS: Basophils % (A) 0 %; Eosinophils # (A) 0.1 k/uL (0-0.7); Eosinophils % (A) 1 %; HCT 37.2 % (39.0-53.0); HGB 13.2 gm/dL (13.0-17.5); Lymphocytes # (A) 1.2 k/uL (1.0-4.8); Lymphocytes % (A) 11 %; MCH 30.6 pg (25.0-35.0); MCHC 35.4 g/dL (31.0-37.0); MCV 86.2 fL (80.0-100.0); Mean Platelet Volume 8.1; Monocytes # (A) 0.3 k/uL (0-1.0); Monocytes % (A) 3 %; Neutrophils # (A) 9.3 k/uL (1.3-7.7); Neutrophils % (A) 84 %; Platelet Count 218 k/uL (150-450); RBC 4.31 m/uL (4.30-5.90); RDW 12.7 % (11.5-15.5)
--- NOTE | 2023-11-25 19:23 | XR ---
EXAMINATION TYPE: XR chest 1V portable DATE OF EXAM: 11/25/2023 COMPARISON: 04/18/2019 INDICATION: Fever TECHNIQUE: Single frontal view of the chest is obtained. FINDINGS: The heart size is normal. The pulmonary vasculature is normal. The lungs are clear. IMPRESSION: 1. No acute pulmonary process.
[2023-11-25 19:26] LABS: ALT 57 U/L (4-49); AST 57 U/L (17-59); African American GFR (CKD) >90 (>60 ml/min/1.73 sqM); Albumin 3.5 g/dL (3.5-5.0); Alkaline Phosphatase 76 U/L (38-126); Anion Gap 15 mmol/L; Blood Urea Nitrogen 12 mg/dL (9-20); Calcium 8.5 mg/dL (8.4-10.2); Carbon Dioxide 20 mmol/L (22-30); Chloride 99 mmol/L (98-107); Glucose 111 mg/dL (74-99); Non-African American GFR(CKD) >90 (>60 ml/min/1.73 sqM); Potassium 4.8 mmol/L (3.5-5.1); Sodium 134 mmol/L (137-145); Total Bilirubin 2.1 mg/dL (0.2-1.3); Total Protein 7.1 g/dL (6.3-8.2)
[2023-11-25] MEDS ORDERED: SODIUM CHLORIDE 0.9% 1,000 ML IV ONE (19:38)
[2023-11-25 19:41] VITALS: BP 108/76; PULSE 99; TEMP 100.5
[2023-11-25 22:06] LABS: Appearance,Urine Clear (Clear); Bilirubin,Urine 1+ (Negative); Blood,Urine Negative (Negative); Color,Urine Yellow; Glucose,Urine (UA) Negative (Negative); Ketones,Urine 1+ (Negative); Leukocyte Esterase,Urine Negative (Negative); Mucus,Urine Few /hpf; Nitrite,Urine Negative (Negative); Protein,Urine 1+ (Negative); RBC,Urine <1 /hpf (0-5); Specific Gravity,Urine 1.027 (1.001-1.035); WBC,Urine 2 /hpf (0-5)
== END 2023-11-25 22:54 | disposition home or self-care (01) ==
LOC: EC 16:05
DX: J06.9 Acute upper respiratory infection, unspecified (principal); I10 Essential (primary) hypertension; K21.9 Gastro-esophageal reflux disease without esophagitis; Z20.822 Contact with and (suspected) exposure to COVID-19; Z79.899 Other long term (current) drug therapy
CPT/HCPCS: 36415; 87651; 80053; 83605; 85025; 81001; 87040; 87636; 71045; 99284; 96374; 96376; 96361; J1170